=== PATIENT | male | born 1965 | race Caucasian/White ===

== ENCOUNTER 2020-01-29 15:07 | Inpatient (IN) | payer MEDICARE, MEDICAID, SELFPAY ==
[2020-01-29] VITALS (10 sets, daily range): BP systolic 88–118; BP diastolic 53–69; PULSE 79–113; RESP 18–30; TEMP 36.7–38.3; O2SAT 90–98
--- NOTE | ~2020-01-29 | XR_ITS ---
EXAMINATION: XR chest 1V portable DATE: 02/03/2020 04:28 INDICATION: Pneumonia with respiratory failure , now desaturating. TECHNIQUE: frontal view of the chest was obtained. COMPARISON: Chest radiograph dated FINDINGS: Opacities in the bilateral mid and lower lung zones more prominent on the right where there has been interval improvement in aeration at the right lung base and with slight worsening on the left which r emains less severe than the right. Small right which is decreased since the prior study. Likely tiny left pleural effusions. No pneumothorax. The cardiomediastinal silhouette is normal. IMPRESSION: 1. Decreased small right and likely new tiny left pleural effusions. 2. Airspace disease in the bilateral lower lung zones, greater but with interval improvement on the r ight and to lesser degree but with slight progression on the left. Differential includes pneumonia, a telectasis, mild pulmonary edema or some combination thereof. Reviewed, dictated and finalized at location A. IMPRESSION: 1. Decreased small right and likely new tiny left pleural effusions. 2. Airspace disease in the bilateral lower lung zones, greater but with interva l improvement on the right and to lesser degree but with slight progression on the left. Differential includes pneumonia, atelectasis, mild pulmonary edema or some combination thereof.
--- NOTE | ~2020-01-29 | XR_ITS ---
MODIFIED ESOPHAGRAM HISTORY: Dysphagia. TECHNIQUE: Modified barium esophagram was performed by speech pathologist under radiologist fluorosco pic guidance. This was recorded on tape. The exam was reviewed on 02/02/2020 10:57 CDT. The DAP for this procedure was 0.7 Gycm2. Fluoroscopy time is 0.8. FINDINGS: Lateral projection of the cervical spine demonstrates normal alignment. Prominent ventral osteophytes.. There is normal swallowing function without evidence for penetration or aspiration.. IMPRESSION: 1: Normal swallowing function. 2: Please refer to speech pathologist report for additional detail. Reviewed, dictated and finalized at location A.
--- NOTE | ~2020-01-29 | XR_ITS ---
EXAMINATION: XR chest 1V portable INDICATION: Cough and fever TECHNIQUE: Portable AP chest at 1557 hours COMPARISON: 10/03/2018 FINDINGS: There are airspace opacities of the lung bases. No pleural effusion or pneumothorax is iden tified. The cardiomediastinal silhouette is normal. IMPRESSION: 1. Bibasilar airspace opacity, consistent with atelectasis versus pneumonia. Reviewed, dictated and finalized at location A.
--- NOTE | ~2020-01-29 | XR_ITS ---
EXAMINATION: XR chest 1V portable DATE: 01/31/2020 05:45 INDICATION: Pneumonia. Respiratory failure. TECHNIQUE: frontal view of the chest was obtained. COMPARISON: Chest radiograph dated 01/29/2020 FINDINGS: No significant change in airspace opacities in the left lower lung zone. New small to moderate right pleural effusion with increasing opacities in the right mid to lower lung zones. No pneumothorax. The cardiomediastinal silhouette is normal. IMPRESSION: 1. Increasing small to moderate right pleural effusion. 2. Patchy bilateral airspace disease which could represent pneumonia, pulmonary edema, atelectasis or some combination thereof. Reviewed, dictated and finalized at location A.
--- NOTE | 2020-01-29 15:07 | ED.URI ---
HPI - URI/Sore Throat General Chief Complaint: Fever Stated Complaint: cough/fever Time Seen by Provider: 01/29/20 15:07 Source: family (caregiver) Mode of arrival: EMS Limitations: other (mental disability) History of Present Illness HPI Narrative: A 54 y/o male presents to the ED, via EMS from [facility], with c/o fever. Per patient's caregiver, the patient started to have a cough. The caregiver notes that today the patient had a fever and was weak, shaky, and fatigued. He has a PMHx of Down Syndrome, Alzheimer disease, pneumonia, and deafness. A complete HPI is limited due to the patient's mental disability. MD elicited complaint: fever Pertinent past history: pneumonia Onset (ago): hour(s) (today) Consistency: constant Associated symptoms: cough and other (weakness, fatigue, shakiness) Related Data Home Medications Medication Instructions Recorded Confirmed cholecalciferol (vitamin D3) unit 01/29/20 docusate sodium 100 mg PO DAILY 01/29/20 donepezil 10 mg PO HS 01/29/20 finasteride 5 mg PO DAILY 01/29/20 levetiracetam 500 mg PO BID 01/29/20 quetiapine 100 mg PO BID 01/29/20 sennosides [senna] 8.6 mg PO BID PRN 01/29/20 tamsulosin 0.4 mg PO DAILY 01/29/20 terbinafine HCl [Antifungal 1 applic TOPICAL BID 01/29/20 (terbinafine)] Allergies Allergy/AdvReac Type Severity Reaction Status Date / Time SODA Allergy Intermediate Unknown Uncoded 12/29/19 13:36 Review of Systems Review of Systems: Narrative: A complete ROS is limited due to the patient's mental disability. All systems reviewed & are unremarkable except as noted in HPI and below Constitutional: Constitutional: Reports fatigue, Reports fever(s), Reports weakness and Reports other (shakiness) Respiratory: Respiratory: Reports cough PMFSH Past Medical History Medical History (Updated 01/29/20 @ 18:03 by Areli Anaya MD) Alzheimer disease Behavior disturbance Deaf Dementia Down syndrome GERD (gastroesophageal reflux disease) Pneumonia Seizure UTI (urinary tract infection) Surgical History Surgical History (Updated 01/29/20 @ 15:20 by Elena Alston) No pertinent past surgical history Social History Social History (Updated 01/29/20 @ 18:04 by Areli Anaya MD) Living arrangements: fdc Exam Const: General: cooperative, no acute distress and alert Nutritional Appearance: well nourished Orientation/consciousness: patient oriented x3 Limitations: no limitations HENMT: Mouth: Yes lip normal and Yes moist mucous membranes Resp: Effort & Inspection: normal respiratory effort Auscultation: rhonchi right lower and wheezes scattered wheezes (bilateral) Cardio: Rate: tachycardic Rhythm: regular rhythm GI: GI Palp: Yes Soft to palpation and No Tenderness to palpation present (GI) Auscultation: normal bowel sounds Skin: General skin exam: normal color Neuro: General: patient oriented x3 (alert) Cognition (Neuro): normal cognition Speech: normal speech Extrem: General: normal to inspection, full ROM and no clubbing, cyanosis or edema Psych: Mental Status: mental status grossly normal Affect: normal affect Attitude: cooperative Course Course Emergency Course: Patient presents with fever, tachycardia, and elevated white blood cell count as well as findings of pneumonia. Patient chest x-ray concerning for possibility that he could have novel coronavirus infection versus other type of pneumonia. Testing will be sent to [place] [facility]. Patient treated with broad-spectrum IV antibiotics. Patient given acetaminophen and 2 L of IV fluid bolus. Patient admitted to hospitalist service for further care. Consultations Consultation #1: Discussed case with PARVEEN Munoz to the hospitalist. She accepts admission. Date: 01/29/20 Time: 16:19 Vital Signs Vital signs: Vital Signs Temperature 100.9 F H 01/29/20 15:08 Pulse Rate 113 H 01/29/20 15:08 Respiratory Rate 1
[2020-01-29] MEDS: LACTATED RINGERS 1,000 ML 999 ML IV CONT ×2 (15:45→17:08)
[2020-01-29 15:48] LABS: Basophils Percent Auto 0.2 % (0.2-1.2); Hematocrit 38.5 % (42.0-52.0); Hemoglobin 12.8 g/dL (14.0-18.0); Immature Granulocyte Absolute 0.14 K/mm3 (0.00-0.031); Immature Granulocyte Percent A 0.8 % (0-0.5); Lymphocytes Absolute Auto 0.42 K/mm3 (0.9-3.2); Lymphocytes Percent Auto 2.3 % (18.3-44.2); Mean Corpuscular HGB Conc 33.2 g/dl (32-36); Mean Corpuscular Hemoglobin 33.8 pg (26-34); Mean Corpuscular Volume 101.6 fl (80-100); Mean Platelet Volume 10.3 fl (7.4-10.4); Monocytes Absolute Auto 0.8 K/mm3 (0.1-0.6); Monocytes Percent Auto 4.1 % (2.6-8.5); Neutrophils Absolute Auto 17.2 K/mm3 (1.3-6.7); Neutrophils Percent Auto 92.6 % (45.5-73.1); Platelet Count Result 198 k/mm3 (150-375); Red Blood Count 3.79 M/mm3 (4.6-6.20); Red Cell Distribution Width 13.5 % (11.5-14.5); White Blood Count 18.5 K/mm3 (4.5-10.0)
[2020-01-29 15:52] LABS: Add Urine Microscopic? YES; Appearance Urine Clear (Clear); Bilirubin Urine Negative (Negative); Blood Urine 1+ (Negative); Color Urine Yellow (Yellow); Glucose Urine UA Negative (Negative); Ketones Urine Negative (Negative); Leukocyte Esterase Ur Negative LEU/UL (Negative); Mucus Urine Rare /lpf; Nitrate Urine Negative (Negative); Protein Urine 1+ mg/dL (Negative); RBC Urine 0-2 /hpf (0-2); Urobilinogen Urine Negative mg/dL (<2.0); WBC Urine 0-3 /hpf
[2020-01-29 15:57] LABS: INR 1.1; Prothrombin Time 14.3 Seconds (11.1-14.7)
[2020-01-29 15:58] LABS: Partial Thromboplastin Time 33.3 SECONDS (22.3-36.8)
[2020-01-29 15:59] LABS: Lactic Acid Reflex 2.4 mmol/L (0.7-2.1)
[2020-01-29 16:03] LABS: Alanine Aminotransferase 24 U/L (4-50); Albumin Level 3.7 g/dL (3.5-5.1); Alkaline Phosphatase 106 U/L (38-126); Aspartate Amino Transferase 57 U/L (17-59); Bilirubin,Total 0.5 mg/dL (0.2-1.3); Blood Urea Nitrogen 20 mg/dL (9-20); Calcium 8.9 mg/dL (8.4-10.2); Carbon Dioxide 28 mmol/L (22-30); Chloride 105 mmol/L (98-107); Estimated Glomerular Filt Rate 45; Glucose 164 mg/dL (75-110); Potassium 3.8 mmol/L (3.4-5.0); Sodium 139 mmol/L (137-145)
--- NOTE | 2020-01-29 16:34 | PCDIET ---
Patient guardian is Izabela. [phone] and [phone] are the numbers to reach her. Pamella is the long term boss . She advised me that anyone can call her at any time. [phone]
[2020-01-29 17:02] LABS: CRP 25.7 mg/dL (<1.0)
--- NOTE | 2020-01-29 18:36 | ADMGEN ---
This patient, Tani Anna, was admitted to 3 [facility] Surg Room 331-01. Patient/family oriented to hospital policies and general routines including ID bracelet, bed and alarms, visiting hours, pain management, procedures, bathroom and other care routines, personal items, smoking policy, room service/diet, and visiting hours. Valuables list has been completed. Information on how to activate the Rapid Response Team has been discussed. Patient/Family are encouraged to report perceived risks to care and to ask questions if they do not understand what they are told or what they should do.
[2020-01-29 18:44] LABS: Reflex Lactic Acid Yes or No Add Lactic
[2020-01-29] MEDS: LACTATED RINGERS 1,000 ML 150 ML IV CONT (18:50)
--- NOTE | 2020-01-29 19:30 | PM.IMHP ---
H&P: HPI History of Present Illness Chief complaint: Fever and cough. Narrative: Tani Anna is a 55-year-old male with Down syndrome, intellectual disability with occasional behavioral disturbances, dementia, history of seizures, benign prostatic hyperplasia, and chronic kidney disease stage 3 who presented to the emergency department earlier today via EMS from his penitentiary, [facility], for evaluation of cough and fever. I have not been able to get a hold of a guardian or emergency contact, and at the time of my evaluation the patient is alert but he does not answer questions or follow commands. According to documentation, he has had a cough for the last couple of days, has been weak, shaky, sleeping more than usual, and has been coughing. Specimens were collected to send for testing to rule out novel yee virus infection per [place] [facility]. He has been started on broad-spectrum antibiotics and is being admitted in this setting. Review of Systems Review of Systems: Narrative: Unable to be obtained he as he is nonverbal. FOR[facility]LY [facility] Past Medical History Medical History (Updated 01/29/20 @ 22:51 by Genie Saunders PA-C) Alzheimer disease Behavior disturbance Chronic anemia Chronic kidney disease, stage 3 Deaf : Baseline creatinine between 1.5 and 1.60. Dementia Down syndrome GERD (gastroesophageal reflux disease) Seizure Surgical History Surgical History (Updated 01/29/20 @ 15:20 by Elena Alston) No pertinent past surgical history Social History Social History (Updated 01/29/20 @ 22:43 by Genie Saunders PA-C) Social History: The patient lives in a penitentiary, [facility]. He is unable to provide me with any family history. His legal guardian is Izabela Blackburn. He is listed as a full code. Living arrangements: penitentiary Meds Home Medications and Allergies Home Medications Medication Instructions Recorded Confirmed Type cholecalciferol (vitamin D3) 1,000 unit PO DAILY 01/29/20 01/29/20 History [Vitamin D3] docusate sodium 100 mg PO DAILY 01/29/20 01/29/20 History donepezil 10 mg PO DAILY 01/29/20 01/29/20 History finasteride 5 mg PO DAILY 01/29/20 01/29/20 History levetiracetam 500 mg PO BID 01/29/20 01/29/20 History polyethylene glycol 3350 [Miralax] 17 g PO DAILY 01/29/20 01/29/20 History quetiapine 100 mg PO BID 01/29/20 01/29/20 History quetiapine [Seroquel] 50 mg PO BID 01/29/20 01/29/20 History sennosides [senna] 8.6 mg PO BID PRN 01/29/20 01/29/20 History tamsulosin 0.4 mg PO DAILY 01/29/20 01/29/20 History Allergies Allergy/AdvReac Type Severity Reaction Status Date / Time SODA Allergy Intermediate Unknown Uncoded 12/29/19 13:36 Vital Signs Vital Signs - 24 hr 01/29/20 15:08 01/29/20 15:13 01/29/20 15:46 Temperature 100.9 F H Pulse Rate 113 H 95 Respiratory Rate 18 22 H Blood Pressure 118/68 88/62 L Pulse Oximetry 90 91 97 01/29/20 15:56 01/29/20 16:07 01/29/20 16:57 Temperature Pulse Rate 89 Respiratory Rate 30 H Blood Pressure 104/56 L 90/69 L Pulse Oximetry 98 98 01/29/20 16:58 01/29/20 17:56 01/29/20 19:04 Temperature 100.0 F H 98.0 F Pulse Rate 79 88 Respiratory Rate 20 18 Blood Pressure 100/57 L 100/58 L Pulse Oximetry 98 98 01/29/20 21:48 Temperature 98.4 F Pulse Rate 82 Respiratory Rate 22 H Blood Pressure 106/53 L Pulse Oximetry 97 Exam Narrative: Exam Narrative: General: Acutely ill-appearing male resting on his right side in bed. HEENT: Pupils are reactive. Extraocular motions appear to be intact. Sclerae anicteric. Oral mucosa dry. Oropharynx not visualized. Neck: Supple. Respiratory: Coarse breath sounds throughout with expiratory rhonchi. Cardiovascular: Regular rate and rhythm with S1-S2. Gastrointestinal: Abdomen is soft, nontender, and nondistended with positive bowel sounds. Skin: Warm, dry, and pale. Extremities: No cyanosis, clubbing, or edema.
[2020-01-29] MEDS: QUEtiapine FUMARATE 100 MG TABLET PO (23:52)
[2020-01-30] VITALS (7 sets, daily range): BP systolic 80–105; BP diastolic 39–76; PULSE 24–98; RESP 22–40; TEMP 36.8–38.6; O2SAT 91–100
[2020-01-30] MEDS: LACTATED RINGERS 1,000 ML 150 ML IV CONT ×2 (02:04→20:09)
[2020-01-30 06:28] LABS: Basophils Percent Auto 0.1 % (0.2-1.2); Hematocrit 32.7 % (42.0-52.0); Immature Granulocyte Absolute 0.12 K/mm3 (0.00-0.031); Immature Granulocyte Percent A 0.7 % (0-0.5); Lymphocytes Absolute Auto 0.68 K/mm3 (0.9-3.2); Lymphocytes Percent Auto 3.9 % (18.3-44.2); Mean Corpuscular HGB Conc 33.6 g/dl (32-36); Mean Corpuscular Hemoglobin 34.1 pg (26-34); Mean Corpuscular Volume 101.2 fl (80-100); Mean Platelet Volume 9.9 fl (7.4-10.4); Monocytes Absolute Auto 0.8 K/mm3 (0.1-0.6); Monocytes Percent Auto 4.8 % (2.6-8.5); Neutrophils Absolute Auto 15.6 K/mm3 (1.3-6.7); Neutrophils Percent Auto 90.5 % (45.5-73.1); Platelet Count Result 164 k/mm3 (150-375); Red Blood Count 3.23 M/mm3 (4.6-6.20); Red Cell Distribution Width 13.5 % (11.5-14.5); White Blood Count 17.3 K/mm3 (4.5-10.0)
[2020-01-30 06:46] LABS: Alanine Aminotransferase 28 U/L (4-50); Albumin Level 2.6 g/dL (3.5-5.1); Alkaline Phosphatase 75 U/L (38-126); Aspartate Amino Transferase 63 U/L (17-59); Bilirubin,Total 0.4 mg/dL (0.2-1.3); Blood Urea Nitrogen 13 mg/dL (9-20); Calcium 7.8 mg/dL (8.4-10.2); Carbon Dioxide 29 mmol/L (22-30); Chloride 107 mmol/L (98-107); Estimated Glomerular Filt Rate 53; Glucose 108 mg/dL (75-110); Potassium 3.6 mmol/L (3.4-5.0); Sodium 138 mmol/L (137-145)
[2020-01-30] MEDS: ALBUTEROL SULFATE (*SP) AEROSOL 1 PUFF 2 PUFF INHALATION ×2 (08:20→20:13)
[2020-01-30] MEDS: FINASTERIDE 5 MG TABLET PO (08:46)
[2020-01-30] MEDS: QUEtiapine FUMARATE 100 MG TABLET PO ×2 (08:46→20:31)
[2020-01-30] MEDS: CHOLECALCIFEROL 1,000 UNIT TABLET 1000 UNITS PO (08:46)
[2020-01-30] MEDS: DOCUSATE SODIUM 100 MG CAPSULE PO (08:46)
[2020-01-30] MEDS: levETIRAcetam 500 MG TABLET PO (08:46)
[2020-01-30] MEDS: TAMSULOSIN HCL 0.4 MG CAPSULE PO (08:46)
[2020-01-30] MEDS: LACTATED RINGERS 1,000 ML 100 ML IV CONT (08:50)
[2020-01-30] MEDS: SODIUM CHLORIDE 0.9% IV 500 ML IV CONT ×2 (12:00→12:50)
--- NOTE | 2020-01-30 13:34 | PM.IMPN ---
Progress Note: A&P Assessment and Plan (1) Sepsis: Qualifiers: Sepsis acute organ dysfunction status: without acute organ dysfunction Sepsis type: sepsis due to unspecified organism Qualified Code(s): A41.9 - Sepsis, unspecified organism Code(s): A41.9 - Sepsis, unspecified organism Status: Acute Assessment and Plan: Criteria met on admission. Blood pressure reviewed on 01/30/2020 with lower readings. Fluid boluses being given. Will increase IV fluid rate. Blood cultures pending. Continue IV ceftriaxone and azithromycin for pneumonia as noted below. Due to drowsiness, will hold any oral medications possible. Will hold his tamsulosin with lower blood pressure. Will continue to monitor closely. Patient remains in isolation with COVID-19 tested initiated by [facility]. (2) Pneumonia: Qualifiers: Laterality: bilateral Lung location: lower lobe of lung Pneumonia type: due to unspecified organism Qualified Code(s): J18.9 - Pneumonia, unspecified organism Code(s): J18.9 - Pneumonia, unspecified organism Status: Acute Assessment and Plan: Chest x-ray with bilateral airspace disease present. Currently on 3 L of oxygen. Continue IV ceftriaxone and azithromycin. Influenza screen negative. Urine antigens ordered. Testing for COVID-19 initiated as noted above. Continue isolation. Continue albuterol and Atrovent MDI. (3) Acute respiratory failure with hypoxia: Code(s): J96.01 - Acute respiratory failure with hypoxia Status: Acute Assessment and Plan: Result of pneumonia as noted above. Continue respiratory treatments and IV antibiotics as noted. Continue oxygen as needed. (4) Chronic kidney disease, stage 3: Code(s): N18.3 - Chronic kidney disease, stage 3 (moderate) Status: Acute Assessment and Plan: Creatinine is stable at 1.40 today. Will continue to monitor. (5) Chronic anemia: Code(s): D64.9 - Anemia, unspecified Status: Acute Assessment and Plan: Hemoglobin stable in his normal range at 11.0 today. Will monitor. (6) Seizure: Code(s): R56.9 - Unspecified convulsions Status: Acute Assessment and Plan: Patient normally on oral Keppra. With patient being drowsy will convert to IV Keppra for now. Will monitor. No current seizure activity. (7) Dementia: Qualifiers: Dementia type: unspecified type Dementia behavioral disturbance: with behavioral disturbance Qualified Code(s): F03.91 - Unspecified dementia with behavioral disturbance Code(s): F03.90 - Unspecified dementia without behavioral disturbance Status: Acute Assessment and Plan: Will try to continue giving his Seroquel as well as able based on his history. If unable to swallow due to current condition, will need to hold and monitor. (8) Down syndrome: Code(s): Q90.9 - Down syndrome, unspecified Status: Acute Assessment and Plan: With intellectual disability also complicating situation. Does live in a long-term. (9) DVT prophylaxis: Code(s): Z29.9 - Encounter for prophylactic measures, unspecified Status: Acute Assessment and Plan: SCDs. Time Spent With Patient Time with patient: 15 - 25 minutes Subjective Date/time seen: 01/30/20 13:34 Interval history: Date of Service: 01/30/2020. Admitted with sepsis and pneumonia. Patient is from a long-term. Known Down's syndrome, intellectual disability with occasional behavioral disturbances, dementia, seizure disorder and CKD stage 3. Patient with fever still today. Patient is drowsy. He will open his eyes but otherwise unable to obtain any information from patient. Review of Systems Review of Systems: ROS unobtainable: unobtainable due to mental condition and unobtainable due to mental status Constitutional: Constitutional: Reports fever(s) Genitourinary: Comments: Catheter in place Ex
--- NOTE | 2020-01-30 18:54 | PC.NURSE ---
Called pt's guardian, Izabela, to inform her that pt was transferred to IMU overflow in ICU 4 at 1850.
[2020-01-30] MEDS: levETIRAcetam 500MG/NACL 100ML 500 MG/100 ML BAG 400 MG IVPB (20:11)
[2020-01-31] VITALS (13 sets, daily range): BP systolic 90–129; BP diastolic 48–70; PULSE 67–92; RESP 18–99; TEMP 37.3–38.1; O2SAT 22–100; BMI 25.7
[2020-01-31] MEDS: LACTATED RINGERS 1,000 ML 150 ML IV CONT ×2 (04:14→10:38)
[2020-01-31 04:46] LABS: Hematocrit 37.4 % (42.0-52.0); Mean Corpuscular HGB Conc 32.1 g/dl (32-36); Mean Corpuscular Volume 105.9 fl (80-100); Mean Platelet Volume 10.8 fl (7.4-10.4); Platelet Count Result 145 k/mm3 (150-375); Red Blood Count 3.53 M/mm3 (4.6-6.20); Red Cell Distribution Width 13.9 % (11.5-14.5); White Blood Count 14.3 K/mm3 (4.5-10.0)
[2020-01-31 07:52] LABS: Blood Urea Nitrogen 12 mg/dL (9-20); Carbon Dioxide 29 mmol/L (22-30); Chloride 105 mmol/L (98-107); Estimated CRCL calculation 56 ml/min; Estimated Glomerular Filt Rate > 60; Glucose 92 mg/dL (75-110); Potassium 3.7 mmol/L (3.4-5.0); Sodium 138 mmol/L (137-145)
[2020-01-31] MEDS: levETIRAcetam 500MG/NACL 100ML 500 MG/100 ML BAG 200 MG IVPB (08:28)
[2020-01-31] MEDS: QUEtiapine FUMARATE 100 MG TABLET PO ×2 (08:29→20:37)
[2020-01-31] MEDS: ALBUTEROL SULFATE (*SP) AEROSOL 1 PUFF 2 PUFF INHALATION ×4 (09:00→20:51)
--- NOTE | 2020-01-31 12:40 | PM.IMPN ---
Progress Note: A&P Assessment and Plan (1) Sepsis: Qualifiers: Sepsis acute organ dysfunction status: without acute organ dysfunction Sepsis type: sepsis due to unspecified organism Qualified Code(s): A41.9 - Sepsis, unspecified organism Code(s): A41.9 - Sepsis, unspecified organism Status: Acute Assessment and Plan: Criteria met on admission. Blood pressure reviewed on 01/31/2020 and stable in low-normal range at this time. Blood cultures with no growth to date. Continue IV ceftriaxone and azithromycin for pneumonia as noted below. Continue isolation with COVID-19 testing initiated by [facility] and results pending. Will decrease IV fluid rate and monitor blood pressure. Telemetry reviewed on 01/31/2020 with sinus rhythm. (2) Pneumonia: Qualifiers: Laterality: bilateral Lung location: lower lobe of lung Pneumonia type: due to unspecified organism Qualified Code(s): J18.9 - Pneumonia, unspecified organism Code(s): J18.9 - Pneumonia, unspecified organism Status: Acute Assessment and Plan: Chest x-ray today personally reviewed with small to moderate right pleural effusion, patchy bilateral airspace disease. Continue oxygen currently at 3 L. Will also continue IV ceftriaxone and azithromycin. Influenza screen is negative. Urine antigens for Legionella and pneumococcus are still pending. Testing for COVID-19 also still pending. Continue isolation. Continue albuterol Atrovent MDI. (3) Acute respiratory failure with hypoxia: Code(s): J96.01 - Acute respiratory failure with hypoxia Status: Acute Assessment and Plan: Result of pneumonia as noted above. Remains on 3 L oxygen. Respiratory rate noted to be increased but oxygen requirements not increasing. Will continue to monitor closely. Continue IV antibiotics and inhalers as noted above. (4) Chronic kidney disease, stage 3: Code(s): N18.3 - Chronic kidney disease, stage 3 (moderate) Status: Acute Assessment and Plan: Creatinine than baseline at 1.10 today. Will continue to monitor with decrease in IV fluids. (5) Chronic anemia: Code(s): D64.9 - Anemia, unspecified Status: Acute Assessment and Plan: Hemoglobin remains stable at 12.0 today. Will monitor. (6) Seizure: Code(s): R56.9 - Unspecified convulsions Status: Acute Assessment and Plan: No seizure activity. Converted to IV Keppra yesterday due to concern for swallowing with drowsiness. Will leave Keppra IV at this time. Eventual transition back to oral Keppra when able. Will continue to monitor. (7) Dementia: Qualifiers: Dementia behavioral disturbance: with behavioral disturbance Dementia type: unspecified type Qualified Code(s): F03.91 - Unspecified dementia with behavioral disturbance Code(s): F03.90 - Unspecified dementia without behavioral disturbance Status: Acute Assessment and Plan: Has been stable. Has been able to take his Seroquel. Will monitor. (8) Down syndrome: Code(s): Q90.9 - Down syndrome, unspecified Status: Acute Assessment and Plan: With intellectual disability also complicating situation. Does live in a halfway. (9) DVT prophylaxis: Code(s): Z29.9 - Encounter for prophylactic measures, unspecified Status: Acute Assessment and Plan: SCDs. Time Spent With Patient Time with patient: 15 - 25 minutes Subjective Date/time seen: 01/31/20 12:40 Interval history: Date of Service: 01/31/2020. Admitted with sepsis and pneumonia. Patient is from a halfway. Known Down's syndrome, intellectual disability with occasional behavioral disturbances, dementia, seizure disorder and CKD stage 3. Moved to IMU for closer monitoring yesterday increased respiratory rate. No issues noted this morning per nursing. Patient is sleeping. I am eventually able to get him to open his eyes. Unable t
[2020-01-31] MEDS: LACTATED RINGERS 1,000 ML 100 ML IV CONT (20:37)
[2020-01-31] MEDS: levETIRAcetam 500MG/NACL 100ML 500 MG/100 ML BAG 400 MG IVPB (20:37)
[2020-02-01] VITALS (17 sets, daily range): BP systolic 86–127; BP diastolic 49–76; PULSE 74–101; RESP 18–34; TEMP 37.1–37.4; O2SAT 91–100
[2020-02-01 05:07] LABS: Hemoglobin 10.8 g/dL (14.0-18.0); Mean Corpuscular HGB Conc 32.7 g/dl (32-36); Mean Corpuscular Hemoglobin 33.6 pg (26-34); Mean Corpuscular Volume 102.8 fl (80-100); Mean Platelet Volume 9.9 fl (7.4-10.4); Platelet Count Result 226 k/mm3 (150-375); Red Blood Count 3.21 M/mm3 (4.6-6.20); Red Cell Distribution Width 13.5 % (11.5-14.5); White Blood Count 11.3 K/mm3 (4.5-10.0)
[2020-02-01 05:13] LABS: Blood Urea Nitrogen 10 mg/dL (9-20); Calcium 7.7 mg/dL (8.4-10.2); Carbon Dioxide 31 mmol/L (22-30); Chloride 103 mmol/L (98-107); Estimated CRCL calculation 56 ml/min; Estimated Glomerular Filt Rate > 60; Glucose 103 mg/dL (75-110); Potassium 3.6 mmol/L (3.4-5.0); Sodium 135 mmol/L (137-145)
[2020-02-01] MEDS: LACTATED RINGERS 1,000 ML 100 ML IV CONT ×2 (06:38→16:44)
[2020-02-01] MEDS: QUEtiapine FUMARATE 100 MG TABLET PO (08:03)
[2020-02-01] MEDS: levETIRAcetam 500MG/NACL 100ML 500 MG/100 ML BAG 200 MG IVPB (08:03)
[2020-02-01] MEDS: ALBUTEROL SULFATE (*SP) AEROSOL 1 PUFF 2 PUFF INHALATION ×4 (08:21→20:09)
--- NOTE | 2020-02-01 16:03 | PCPTNOTE ---
Spoke w/ Dr Richards regarding pt being at baseline and no skilled therapy needs. She agreed w/ DC'ing PT/OT
--- NOTE | 2020-02-01 16:45 | PM.IMPN ---
Progress Note: A&P Assessment and Plan (1) Sepsis: Qualifiers: Sepsis acute organ dysfunction status: without acute organ dysfunction Sepsis type: sepsis due to unspecified organism Qualified Code(s): A41.9 - Sepsis, unspecified organism Code(s): A41.9 - Sepsis, unspecified organism Status: Acute (2) Pneumonia: Qualifiers: Laterality: bilateral Lung location: lower lobe of lung Pneumonia type: due to unspecified organism Qualified Code(s): J18.9 - Pneumonia, unspecified organism Code(s): J18.9 - Pneumonia, unspecified organism Status: Acute (3) Acute respiratory failure with hypoxia: Code(s): J96.01 - Acute respiratory failure with hypoxia Status: Acute (4) Chronic kidney disease, stage 3: Code(s): N18.3 - Chronic kidney disease, stage 3 (moderate) Status: Acute (5) Chronic anemia: Code(s): D64.9 - Anemia, unspecified Status: Acute (6) Seizure: Code(s): R56.9 - Unspecified convulsions Status: Acute Assessment and Plan: . (7) Dementia: Qualifiers: Dementia behavioral disturbance: with behavioral disturbance Dementia type: unspecified type Qualified Code(s): F03.91 - Unspecified dementia with behavioral disturbance Code(s): F03.90 - Unspecified dementia without behavioral disturbance Status: Acute Assessment and Plan: (8) Down syndrome: Code(s): Q90.9 - Down syndrome, unspecified Status: Acute (9) DVT prophylaxis: Code(s): Z29.9 - Encounter for prophylactic measures, unspecified Status: Acute Assessment and Plan: SCDs. Subjective Date/time seen: 02/01/20 16:45 Interval history: Date of Service: 01/31/2020. Admitted with sepsis and pneumonia. Patient is from a detention. Known Down's syndrome, intellectual disability with occasional behavioral disturbances, dementia, seizure disorder and CKD stage 3. COVID testing is negative transfer to medical floor Review of Systems Review of Systems: All systems reviewed & are unremarkable except as noted in HPI and below Exam Narrative: Exam Narrative: Sleeping but eventually opens his eyes. Does not answer questions. Const: General: no acute distress HENMT: Other: Unable to assess. Neck: Neck: supple Lymphatic: lymphadenopathy not noted Resp: Auscultation: diminished lung sounds Other: Coarse breath sounds more so on the right. Cardio: Rate: regular rate Rhythm: regular rhythm GI: Inspection: non-distended Auscultation: normal bowel sounds Urinary Catheter: Urinary Catheter: patent and draining and urine pink Skin: General skin exam: normal color Neuro: Other: Does not answer questions but will open eyes Extrem: General: no edema Psych: Other: pleasant, not agitated Objective Data Vital Signs Vital Signs: Vital Signs - 24 hr 01/31/20 18:00 01/31/20 20:00 01/31/20 20:52 Temperature 37.6 C Pulse Rate 84 88 Respiratory Rate 99 H 28 H Blood Pressure 106/70 117/66 Pulse Oximetry 22 L 100 91 01/31/20 22:00 02/01/20 00:00 02/01/20 02:00 Temperature 37.2 C Pulse Rate 84 82 101 H Respiratory Rate 27 H 30 H 32 H Blood Pressure 96/62 L 110/63 114/59 L Pulse Oximetry 93 98 91 02/01/20 04:00 02/01/20 06:00 02/01/20 08:00 Temperature 37.1 C 37.1 C Pulse Rate 77 78 74 Respiratory Rate 22 H 30 H 18 Blood Pressure 86/51 L 105/69 96/56 L Pulse Oximetry 100 95 97 02/01/20 08:26 02/01/20 10:00 02/01/20 12:00 Temperature 37.3 C Pulse Rate 80 78 80 Respiratory Rate 18 24 H 26 H Blood Pressure 127/49 L 112/63 Pulse Oximetry 96 97 97 02/01/20 14:00 02/01/20 16:00 02/01/20 16:17 Temperature 37.3 C Pulse Rate 94 82 85 Respiratory Rate 25 H 34 H 20 Blood Pressure 114/72 106/63 Pulse Oximetry 96 95 96 Intake/Output Intake/Output: Intake & Output 01/29/20 01/30/20 01/31/20 02/01/20 23:59 23:59 23:59 23:59 Intake Total 2400 4
[2020-02-01] MEDS: levETIRAcetam 500MG/NACL 100ML 500 MG/100 ML BAG 400 MG IVPB (21:30)
[2020-02-02] VITALS (14 sets, daily range): BP systolic 93–132; BP diastolic 52–74; PULSE 64–92; RESP 14–26; TEMP 36.7–37.6; O2SAT 91–95
[2020-02-02] MEDS: LACTATED RINGERS 1,000 ML 100 ML IV CONT (02:42)
[2020-02-02] MEDS: levETIRAcetam 500MG/NACL 100ML 500 MG/100 ML BAG 400 MG IVPB (08:30)
[2020-02-02 08:32] LABS: Hematocrit 32.9 % (42.0-52.0); Mean Corpuscular HGB Conc 33.4 g/dl (32-36); Mean Corpuscular Hemoglobin 33.5 pg (26-34); Mean Corpuscular Volume 100.3 fl (80-100); Mean Platelet Volume 9.6 fl (7.4-10.4); Platelet Count Result 258 k/mm3 (150-375); Red Blood Count 3.28 M/mm3 (4.6-6.20); Red Cell Distribution Width 13.3 % (11.5-14.5); White Blood Count 5.8 K/mm3 (4.5-10.0)
[2020-02-02 08:46] LABS: Blood Urea Nitrogen 10 mg/dL (9-20); Calcium 7.6 mg/dL (8.4-10.2); Carbon Dioxide 31 mmol/L (22-30); Chloride 104 mmol/L (98-107); Estimated CRCL calculation 61 ml/min; Estimated Glomerular Filt Rate > 60; Glucose 102 mg/dL (75-110); Magnesium 1.9 mg/dL (1.6-2.3); Potassium 3.4 mmol/L (3.4-5.0); Sodium 137 mmol/L (137-145)
[2020-02-02] MEDS: ALBUTEROL SULFATE (*SP) AEROSOL 1 PUFF 2 PUFF INHALATION ×4 (09:17→21:12)
--- NOTE | 2020-02-02 09:40 | PCSTNOTE ---
Please refer to the Bedside Swallow Evaluation in the EMR.
[2020-02-02] MEDS: QUEtiapine FUMARATE 100 MG TABLET PO ×2 (09:54→20:10)
--- NOTE | 2020-02-02 12:02 | PCSTNOTE ---
Please refer to the Modified Barium Swallow Evaluation in the EMR.
--- NOTE | 2020-02-02 13:08 | PM.IMPN ---
Progress Note: A&P Assessment and Plan (1) Sepsis: Qualifiers: Sepsis acute organ dysfunction status: without acute organ dysfunction Sepsis type: sepsis due to unspecified organism Qualified Code(s): A41.9 - Sepsis, unspecified organism Code(s): A41.9 - Sepsis, unspecified organism Status: Acute Assessment and Plan: Continue IV ceftriaxone and azithromycin for pneumonia. transfer to medical floor. (2) Pneumonia: Qualifiers: Laterality: bilateral Lung location: lower lobe of lung Pneumonia type: due to unspecified organism Qualified Code(s): J18.9 - Pneumonia, unspecified organism Code(s): J18.9 - Pneumonia, unspecified organism Status: Acute Assessment and Plan: Chest x-ray today shows small to moderate right pleural effusion, patchy bilateral airspace disease. Continue oxygen currently at 2 L. Will also continue IV ceftriaxone and azithromycin. Influenza screen is negative. Urine antigens for Legionella and pneumococcus are still pending. COVID negative as Per JOSE DAVID ID nurse. Continue albuterol Atrovent MDI. (3) Acute respiratory failure with hypoxia: Code(s): J96.01 - Acute respiratory failure with hypoxia Status: Acute Assessment and Plan: Result of pneumonia as noted above. Remains on 2- 3 L oxygen. Continue IV antibiotics and inhalers as noted above. (4) Chronic kidney disease, stage 3: Code(s): N18.3 - Chronic kidney disease, stage 3 (moderate) Status: Acute Assessment and Plan: Creatinine is at baseline. (5) Chronic anemia: Code(s): D64.9 - Anemia, unspecified Status: Acute Assessment and Plan: Hemoglobin remains stable at 11.0 (6) Seizure: Code(s): R56.9 - Unspecified convulsions Status: Acute Assessment and Plan: No seizure activity. Converted to IV Keppra yesterday due to concern for swallowing with drowsiness. change bavk to oral keppra today. Soft bites ok (7) Dementia: Qualifiers: Dementia type: unspecified type Dementia behavioral disturbance: with behavioral disturbance Qualified Code(s): F03.91 - Unspecified dementia with behavioral disturbance Code(s): F03.90 - Unspecified dementia without behavioral disturbance Status: Acute Assessment and Plan: Stable. Has been able to take his Seroquel. Will monitor. (8) Down syndrome: Code(s): Q90.9 - Down syndrome, unspecified Status: Acute Assessment and Plan: With intellectual disability also complicating situation. Does live in a senior care. (9) DVT prophylaxis: Code(s): Z29.9 - Encounter for prophylactic measures, unspecified Status: Acute Assessment and Plan: SCDs. Subjective Date/time seen: 02/02/20 13:08 Interval history: Admitted with sepsis and pneumonia. Patient is from a senior care. Known Down's syndrome, intellectual disability with occasional behavioral disturbances, dementia, seizure disorder and CKD stage 3. moved to ICu for COVID testing found to be negative. Transferred back to IMU. Can be transferred to the medical floor appears stable just very tired. Review of Systems Review of Systems: ROS unobtainable: Yes unobtainable due to mental status Respiratory: Respiratory: Reports cough and Reports wheezing Comments: lethargy Exam Narrative: Exam Narrative: Very tired Const: General: no acute distress Neck: Neck: supple Resp: Other: Coarse breath sounds more so on the right. Cardio: Rate: regular rate Rhythm: regular rhythm GI: Inspection: non-distended Auscultation: normal bowel sounds Urinary Catheter: Urinary Catheter: patent and draining and urine pink Skin: General skin exam: normal color Neuro: Other: Tired sleepy Extrem: General: no edema Psych: Other: Pleasant not agitated. Objective Data Vital Signs Vital Signs: Vital Signs - 24 hr 02/01/20 14:00 02/01/20 16:0
[2020-02-02 15:26] LABS: Pneumococcal Antigen Urine Not Detected (Not Detected)
[2020-02-02] MEDS: levETIRAcetam 500 MG TABLET PO (20:10)
[2020-02-02] MEDS: QUEtiapine FUMARATE 25 MG TABLET 50 MG PO (20:11)
[2020-02-03] VITALS (12 sets, daily range): BP systolic 102–132; BP diastolic 55–71; PULSE 63–98; RESP 16–40; TEMP 36.6–37.6; O2SAT 88–98
[2020-02-03] MEDS: ALBUTEROL SULFATE (*SP) AEROSOL 1 PUFF 2 PUFF INHALATION ×5 (04:31→21:01)
[2020-02-03 04:34] LABS: Alveolar/Arterial O2 Gradient 87.9 mmHg; Base Excess ABG 4.8 mEq/l (+/-2.0); Fractional Inspired Oxygen 28 %; HCO3 ABG 28.9 mEq/l (22.0-26.0); Oxygen Content ABG 14.8 %vol (16.0-22.0); Oxygen Saturation ABG 93.6 % (95.0-100.0); Oxyhemoglobin 91.4 % THb (90.0-100.0); PCO2 ABG 40.6 mmHg (35.0-45.0); PO2 ABG 63.8 mmHg (80.0-100.0); PO2 FiO2 Ratio Arterial Blood 2.28 %; Total Hemoglobin 11.5 g/dL (12.0-18.0)
[2020-02-03 04:35] LABS: Device NASAL CANNULA; Site Drawn RIGHT BRACHIAL
[2020-02-03 05:08] LABS: Hematocrit 31.4 % (42.0-52.0); Hemoglobin 10.4 g/dL (14.0-18.0); Mean Corpuscular HGB Conc 33.1 g/dl (32-36); Mean Corpuscular Hemoglobin 33.7 pg (26-34); Mean Corpuscular Volume 101.6 fl (80-100); Mean Platelet Volume 9.8 fl (7.4-10.4); Platelet Count Result 301 k/mm3 (150-375); Red Blood Count 3.09 M/mm3 (4.6-6.20); Red Cell Distribution Width 13.7 % (11.5-14.5); White Blood Count 4.5 K/mm3 (4.5-10.0)
[2020-02-03 05:22] LABS: Blood Urea Nitrogen 12 mg/dL (9-20); Calcium 7.4 mg/dL (8.4-10.2); Carbon Dioxide 30 mmol/L (22-30); Chloride 105 mmol/L (98-107); Estimated CRCL calculation 56 ml/min; Estimated Glomerular Filt Rate > 60; Glucose 106 mg/dL (75-110); Potassium 3.2 mmol/L (3.4-5.0); Sodium 139 mmol/L (137-145)
[2020-02-03] MEDS: QUEtiapine FUMARATE 100 MG TABLET PO ×2 (08:58→20:41)
[2020-02-03] MEDS: QUEtiapine FUMARATE 25 MG TABLET 50 MG PO ×2 (08:58→20:40)
[2020-02-03] MEDS: polyethylene glycoL 3350 17 GM POWD.PACK PO (08:58)
[2020-02-03] MEDS: DONEPEZIL HCL 10 MG TABLET PO (08:58)
[2020-02-03] MEDS: levETIRAcetam 500 MG TABLET PO ×2 (08:58→20:41)
--- NOTE | 2020-02-03 12:37 | PM.IMPN ---
Progress Note: A&P Assessment and Plan (1) Sepsis: Qualifiers: Sepsis acute organ dysfunction status: without acute organ dysfunction Sepsis type: sepsis due to unspecified organism Qualified Code(s): A41.9 - Sepsis, unspecified organism Code(s): A41.9 - Sepsis, unspecified organism Status: Acute Assessment and Plan: Continue IV ceftriaxone and azithromycin for pneumonia. Transfer to medical floor. (2) Pneumonia: Qualifiers: Laterality: bilateral Lung location: lower lobe of lung Pneumonia type: due to unspecified organism Qualified Code(s): J18.9 - Pneumonia, unspecified organism Code(s): J18.9 - Pneumonia, unspecified organism Status: Acute Assessment and Plan: Continue IV ceftriaxone and azithromycin for pneumonia. Transfer to medical floor. (3) Acute respiratory failure with hypoxia: Code(s): J96.01 - Acute respiratory failure with hypoxia Status: Acute Assessment and Plan: Continue IV ceftriaxone and azithromycin for pneumonia. Transfer to medical floor. Chest x-ray today shows small to moderate right pleural effusion, patchy bilateral airspace disease. Continue oxygen currently at 2 L. Will also continue IV ceftriaxone and azithromycin. Influenza screen is negative. Urine antigens for Legionella and pneumococcus are still pending. COVID negative as Per JOSE DAVID ID nurse. Continue albuterol Atrovent MDI. (4) Chronic kidney disease, stage 3: Code(s): N18.3 - Chronic kidney disease, stage 3 (moderate) Status: Acute (5) Chronic anemia: Code(s): D64.9 - Anemia, unspecified Status: Acute (6) Seizure: Code(s): R56.9 - Unspecified convulsions Status: Chronic Assessment and Plan: . (7) Dementia: Qualifiers: Dementia type: unspecified type Dementia behavioral disturbance: with behavioral disturbance Qualified Code(s): F03.91 - Unspecified dementia with behavioral disturbance Code(s): F03.90 - Unspecified dementia without behavioral disturbance Status: Chronic Assessment and Plan: (8) Down syndrome: Code(s): Q90.9 - Down syndrome, unspecified Status: Chronic (9) DVT prophylaxis: Code(s): Z29.9 - Encounter for prophylactic measures, unspecified Status: Acute Assessment and Plan: SCDs. Subjective Date/time seen: 02/03/20 12:37 Interval history: Date of Service: 01/31/2020. Admitted with sepsis and pneumonia. [facility]. Known Down's syndrome, intellectual disability with occasional behavioral disturbances, dementia, seizure disorder and CKD stage 3. COVID testing is negative transfer to medical floor. Pt is pleasant no acute compliants. Review of Systems Constitutional: Constitutional: Reports fatigue and Reports malaise Exam Narrative: Exam Narrative: Very tired Const: General: no acute distress Neck: Neck: supple Lymphatic: lymphadenopathy not noted Resp: Auscultation: diminished lung sounds Other: Coarse breath sounds Cardio: Rate: regular rate Rhythm: regular rhythm GI: Inspection: non-distended Auscultation: normal bowel sounds Urinary Catheter: Urinary Catheter: patent and draining and urine pink Skin: General skin exam: normal color Neuro: Other: Tired sleepy Extrem: General: no edema Psych: Other: pleasant, not agitated Objective Data Vital Signs Vital Signs: Vital Signs - 24 hr 02/02/20 14:00 02/02/20 16:00 02/02/20 19:57 Temperature 36.9 C 37.6 C Pulse Rate 78 76 90 Respiratory Rate 14 18 Blood Pressure 94/52 L 113/59 L Pulse Oximetry 94 91 02/02/20 20:00 02/02/20 21:16 02/03/20 00:00 Temperature 37.3 C Pulse Rate 90 90 Respiratory Rate 18 20 Blood Pressure 132/66 Pulse Oximetry 91 92 90 02/03/20 03:55 02/03/20 03:56 02/03/20 03:58 Temperature 37.4 C Pulse Rate 91 91 88 Respiratory Rate 40 H 40 H 36 H Blood Pressure 105
[2020-02-03] MEDS: POTASSIUM CHLORIDE 20 MEQ PACKET (FOR LIQUID) PO (13:07)
--- NOTE | 2020-02-03 14:06 | PC.NURSE ---
Addendum entered by Chanelle Angel RN 02/03/20 14:14: This patient, Tani Anna Jr., was received from [ ] on 02/03/20 at 1414. Personal belongings list checked and signed. Patient/family oriented to unit policies and routines Original Note: This patient, Tani Anna Jr., was admitted to 3 [facility] Surg Room 327-01. Patient/family oriented to hospital policies and general routines including ID bracelet, bed and alarms, visiting hours, pain management, procedures, bathroom and other care routines, personal items, smoking policy, room service/diet, and visiting hours. Valuables list has been completed. Information on how to activate the Rapid Response Team has been discussed. Patient/Family are encouraged to report perceived risks to care and to ask questions if they do not understand what they are told or what they should do.
--- NOTE | 2020-02-03 14:07 | PC.NURSE ---
This patient, Tani Anna Jr., was transferred to [[id number]] on 02/03/20 at 1408. Personal belongings sent with patient. Belongings list checked and signed with receiving [ ]. Report given to [Chanelle ZIMMERMAN]. Appropriate documentation sent with patient.
[2020-02-03 14:20] LABS: Legionella pneumophila Ag Ur Not Detected (Not Detected)
[2020-02-03 19:36] LABS: Glucose Point of Care 99 (65-105)
[2020-02-04 06:00] VITALS: BP 102/46; PULSE 64; RESP 16; TEMP 36.3; O2SAT 99
[2020-02-04 06:39] LABS: Blood Urea Nitrogen 16 mg/dL (9-20); Calcium 7.3 mg/dL (8.4-10.2); Carbon Dioxide 29 mmol/L (22-30); Chloride 106 mmol/L (98-107); Estimated CRCL calculation 61 ml/min; Estimated Glomerular Filt Rate > 60; Glucose 99 mg/dL (75-110); Potassium 3.9 mmol/L (3.4-5.0); Sodium 139 mmol/L (137-145)
[2020-02-04 06:53] LABS: Hematocrit 32.2 % (42.0-52.0); Hemoglobin 10.6 g/dL (14.0-18.0); Mean Corpuscular HGB Conc 32.9 g/dl (32-36); Mean Corpuscular Hemoglobin 33.4 pg (26-34); Mean Corpuscular Volume 101.6 fl (80-100); Mean Platelet Volume 10.8 fl (7.4-10.4); Platelet Count Result 231 k/mm3 (150-375); Red Blood Count 3.17 M/mm3 (4.6-6.20); Red Cell Distribution Width 13.8 % (11.5-14.5); White Blood Count 4.4 K/mm3 (4.5-10.0)
[2020-02-04] MEDS: ALBUTEROL SULFATE (*SP) AEROSOL 1 PUFF 2 PUFF INHALATION ×4 (08:43→19:37)
[2020-02-04 08:44] VITALS: PULSE 88; RESP 16; O2SAT 94
[2020-02-04] MEDS: DONEPEZIL HCL 10 MG TABLET PO (09:38)
[2020-02-04] MEDS: polyethylene glycoL 3350 17 GM POWD.PACK PO (09:39)
[2020-02-04] MEDS: FUROSEMIDE 40 MG TABLET PO ×2 (09:39→17:00)
[2020-02-04] MEDS: QUEtiapine FUMARATE 25 MG TABLET 50 MG PO ×2 (09:39→20:16)
[2020-02-04] MEDS: levETIRAcetam 500 MG TABLET PO ×2 (09:39→20:16)
[2020-02-04] MEDS: QUEtiapine FUMARATE 100 MG TABLET PO ×2 (09:40→20:16)
--- NOTE | 2020-02-04 12:34 | PM.IMPN ---
Progress Note: A&P Assessment and Plan (1) Sepsis: Qualifiers: Sepsis acute organ dysfunction status: without acute organ dysfunction Sepsis type: sepsis due to unspecified organism Qualified Code(s): A41.9 - Sepsis, unspecified organism Code(s): A41.9 - Sepsis, unspecified organism Status: Resolved Assessment and Plan: Continue IV ceftriaxone and azithromycin for pneumonia. Transfer to medical floor. (2) Pneumonia: Qualifiers: Laterality: bilateral Lung location: lower lobe of lung Pneumonia type: due to unspecified organism Qualified Code(s): J18.9 - Pneumonia, unspecified organism Code(s): J18.9 - Pneumonia, unspecified organism Status: Acute Assessment and Plan: Continue IV ceftriaxone and azithromycin for pneumonia. Transfer to medical floor. (3) Acute respiratory failure with hypoxia: Code(s): J96.01 - Acute respiratory failure with hypoxia Status: Acute Assessment and Plan: Continue IV ceftriaxone and azithromycin for pneumonia. Transfer to medical floor. Chest x-ray today shows small to moderate right pleural effusion, patchy bilateral airspace disease. Continue oxygen currently at 2 L. Will also continue IV ceftriaxone and azithromycin. Influenza screen is negative. Urine antigens for Legionella and pneumococcus are still pending. COVID negative as Per JOSE DAVID ID nurse. Continue albuterol Atrovent MDI. Add lasix orally. Pt had MBS pt to have soft bites. (4) Chronic kidney disease, stage 3: Code(s): N18.3 - Chronic kidney disease, stage 3 (moderate) Status: Acute (5) Chronic anemia: Code(s): D64.9 - Anemia, unspecified Status: Acute (6) Seizure: Code(s): R56.9 - Unspecified convulsions Status: Chronic Assessment and Plan: Pt is on keppra (7) Dementia: Qualifiers: Dementia type: unspecified type Dementia behavioral disturbance: with behavioral disturbance Qualified Code(s): F03.91 - Unspecified dementia with behavioral disturbance Code(s): F03.90 - Unspecified dementia without behavioral disturbance Status: Chronic Assessment and Plan: Pt is on seroquel (8) Down syndrome: Code(s): Q90.9 - Down syndrome, unspecified Status: Chronic (9) DVT prophylaxis: Code(s): Z29.9 - Encounter for prophylactic measures, unspecified Status: Acute Assessment and Plan: SCDs. Subjective Date/time seen: 02/04/20 12:34 Interval history: Date of Service: 01/31/2020. Admitted with sepsis and pneumonia. Patient is from a custodial. Known Down's syndrome, intellectual disability with occasional behavioral disturbances, dementia, seizure disorder and CKD stage 3. COVID testing is negative transfer to medical floor. Pt is pleasant no acute compliants. Pt still tired with mild cough Review of Systems Review of Systems: All systems reviewed & are unremarkable except as noted in HPI and below Constitutional: Constitutional: Reports fatigue Respiratory: Respiratory: Reports cough Exam Narrative: Exam Narrative: Very tired Const: General: no acute distress HENMT: Other: Unable to assess. Neck: Neck: supple Lymphatic: lymphadenopathy not noted Resp: Auscultation: diminished lung sounds Other: Coarse breath sounds Cardio: Rate: regular rate Rhythm: regular rhythm GI: Inspection: non-distended Auscultation: normal bowel sounds Urinary Catheter: Urinary Catheter: patent and draining and urine pink Skin: General skin exam: normal color Neuro: Other: Tired sleepy Extrem: General: no edema Objective Data Vital Signs Vital Signs: Vital Signs - 24 hr 02/03/20 14:41 02/03/20 15:03 02/03/20 22:00 Temperature 36.9 C 36.9 C Pulse Rate 93 98 Respiratory Rate 24 H 16 Blood Pressure 110/62 108/57 L Pulse Oximetry 95 94 02/04/20 06:00 02/04/20 08:44 Temperature 36.3 C L Pulse Rate 64 88 Respirator
[2020-02-04 14:00] VITALS: BP 91/56; PULSE 74; RESP 18; TEMP 36.9; O2SAT 97
[2020-02-04 22:00] VITALS: BP 102/67; PULSE 79; RESP 16; TEMP 36.6; O2SAT 91
[2020-02-05 05:52] LABS: Hematocrit 36.8 % (42.0-52.0); Mean Corpuscular HGB Conc 32.6 g/dl (32-36); Mean Corpuscular Hemoglobin 33.5 pg (26-34); Mean Corpuscular Volume 102.8 fl (80-100); Mean Platelet Volume 10.1 fl (7.4-10.4); Platelet Count Result 400 k/mm3 (150-375); Red Blood Count 3.58 M/mm3 (4.6-6.20); Red Cell Distribution Width 13.5 % (11.5-14.5); White Blood Count 5.3 K/mm3 (4.5-10.0)
[2020-02-05 06:00] VITALS: BP 119/88; PULSE 61; RESP 18; TEMP 36.7; O2SAT 100
[2020-02-05 06:18] LABS: Blood Urea Nitrogen 16 mg/dL (9-20); Calcium 8.1 mg/dL (8.4-10.2); Carbon Dioxide 34 mmol/L (22-30); Chloride 99 mmol/L (98-107); Estimated CRCL calculation 56 ml/min; Estimated Glomerular Filt Rate > 60; Glucose 101 mg/dL (75-110); Potassium 3.6 mmol/L (3.4-5.0); Sodium 137 mmol/L (137-145)
[2020-02-05] MEDS: POTASSIUM CHLORIDE 20 MEQ PACKET (FOR LIQUID) PO (08:53)
[2020-02-05] MEDS: polyethylene glycoL 3350 17 GM POWD.PACK PO (08:53)
[2020-02-05] MEDS: DONEPEZIL HCL 10 MG TABLET PO (08:54)
[2020-02-05] MEDS: levETIRAcetam 500 MG TABLET PO ×2 (08:54→21:01)
[2020-02-05] MEDS: QUEtiapine FUMARATE 25 MG TABLET 50 MG PO ×2 (08:54→21:01)
[2020-02-05] MEDS: FUROSEMIDE 40 MG TABLET PO ×2 (08:54→18:08)
[2020-02-05] MEDS: QUEtiapine FUMARATE 100 MG TABLET PO ×2 (08:55→21:01)
[2020-02-05] MEDS: ALBUTEROL SULFATE (*SP) AEROSOL 1 PUFF 2 PUFF INHALATION ×4 (09:07→20:14)
--- NOTE | 2020-02-05 13:46 | PM.IMPN ---
Progress Note: A&P Assessment and Plan (1) Sepsis: Qualifiers: Sepsis acute organ dysfunction status: without acute organ dysfunction Sepsis type: sepsis due to unspecified organism Qualified Code(s): A41.9 - Sepsis, unspecified organism Code(s): A41.9 - Sepsis, unspecified organism Status: Resolved Assessment and Plan: Continue IV ceftriaxone and azithromycin for pneumonia. Transfer to medical floor. (2) Pneumonia: Qualifiers: Laterality: bilateral Lung location: lower lobe of lung Pneumonia type: due to unspecified organism Qualified Code(s): J18.9 - Pneumonia, unspecified organism Code(s): J18.9 - Pneumonia, unspecified organism Status: Acute Assessment and Plan: Continue IV ceftriaxone and azithromycin for pneumonia. Transfer to medical floor. Date of Service: 02/05/2020. Admitted with sepsis and pneumonia. Patient is [place] [facility]. Known Down's syndrome, intellectual disability with occasional behavioral disturbances, dementia, seizure disorder and CKD stage 3. COVID testing is negative transfer to medical floor. Pt is pleasant no acute compliants. Pt still tired with mild cough unable to provide detailed review of symptoms, however repeat chest x-ray on 02/02 shows improvement white counts are now baseline and he has not had any fever will continue to monitor overnight and possibly discharge him in the morning (3) Acute respiratory failure with hypoxia: Code(s): J96.01 - Acute respiratory failure with hypoxia Status: Acute Assessment and Plan: Continue IV ceftriaxone and azithromycin for pneumonia. Transfer to medical floor. Chest x-ray today shows small to moderate right pleural effusion, patchy bilateral airspace disease. Continue oxygen currently at 2 L. Will also continue IV ceftriaxone and azithromycin. Influenza screen is negative. Urine antigens for Legionella and pneumococcus are still pending. COVID negative as Per JOSE DAVID ID nurse. Continue albuterol Atrovent MDI. Add lasix orally. Pt had MBS pt to have soft bites. (4) Chronic kidney disease, stage 3: Code(s): N18.3 - Chronic kidney disease, stage 3 (moderate) Status: Acute Assessment and Plan: Patient kidney function and now baseline (5) Chronic anemia: Code(s): D64.9 - Anemia, unspecified Status: Acute Assessment and Plan: Hemoglobin is stable (6) Seizure: Code(s): R56.9 - Unspecified convulsions Status: Chronic Assessment and Plan: Pt is on keppra (7) Dementia: Qualifiers: Dementia type: unspecified type Dementia behavioral disturbance: with behavioral disturbance Qualified Code(s): F03.91 - Unspecified dementia with behavioral disturbance Code(s): F03.90 - Unspecified dementia without behavioral disturbance Status: Chronic Assessment and Plan: Pt is on seroquel (8) Down syndrome: Code(s): Q90.9 - Down syndrome, unspecified Status: Chronic (9) DVT prophylaxis: Code(s): Z29.9 - Encounter for prophylactic measures, unspecified Status: Acute Assessment and Plan: SCDs. Subjective Date/time seen: 02/05/20 13:46 Interval history: Date of Service: 02/05/2020. Admitted with sepsis and pneumonia. Patient is [place] [facility]. Known Down's syndrome, intellectual disability with occasional behavioral disturbances, dementia, seizure disorder and CKD stage 3. COVID testing is negative transfer to medical floor. Pt is pleasant no acute compliants. Pt still tired with mild cough unable to provide detailed review of symptoms, however repeat chest x-ray on 02/02 shows improvement white counts are now baseline and he has not had any fever will continue to monitor overnight and possibly discharge him in the morning Review of Systems Review of Systems: ROS unobtainable: Yes unobtainable due to medical condition Exam Narrative: Exam Narrative: Very tir
[2020-02-05 14:00] VITALS: BP 112/65; PULSE 78; RESP 16; TEMP 36.6; O2SAT 94
[2020-02-05 20:16] VITALS: PULSE 79; RESP 16; O2SAT 93
[2020-02-05 22:00] VITALS: BP 99/76; PULSE 69; RESP 20; TEMP 37.1; O2SAT 95
[2020-02-06 06:00] VITALS: BP 99/67; PULSE 51; RESP 16; TEMP 36.2; O2SAT 98
[2020-02-06 06:19] LABS: Hematocrit 36.8 % (42.0-52.0); Hemoglobin 12.4 g/dL (14.0-18.0); Mean Corpuscular HGB Conc 33.7 g/dl (32-36); Mean Corpuscular Hemoglobin 33.6 pg (26-34); Mean Corpuscular Volume 99.7 fl (80-100); Mean Platelet Volume 9.9 fl (7.4-10.4); Platelet Count Result 383 k/mm3 (150-375); Red Blood Count 3.69 M/mm3 (4.6-6.20); Red Cell Distribution Width 13.5 % (11.5-14.5)
[2020-02-06 06:36] LABS: Blood Urea Nitrogen 17 mg/dL (9-20); Calcium 8.2 mg/dL (8.4-10.2); Carbon Dioxide 33 mmol/L (22-30); Chloride 100 mmol/L (98-107); Estimated CRCL calculation 47 ml/min; Estimated Glomerular Filt Rate 58; Glucose 104 mg/dL (75-110); Potassium 4.1 mmol/L (3.4-5.0); Sodium 136 mmol/L (137-145)
[2020-02-06] MEDS: ALBUTEROL SULFATE (*SP) AEROSOL 1 PUFF 2 PUFF INHALATION ×2 (08:26→12:30)
[2020-02-06 08:30] VITALS: O2SAT 95
[2020-02-06] MEDS: DONEPEZIL HCL 10 MG TABLET PO (09:26)
[2020-02-06] MEDS: POTASSIUM CHLORIDE 20 MEQ PACKET (FOR LIQUID) PO (09:27)
[2020-02-06] MEDS: polyethylene glycoL 3350 17 GM POWD.PACK PO (09:27)
[2020-02-06] MEDS: FUROSEMIDE 40 MG TABLET PO (09:27)
[2020-02-06] MEDS: levETIRAcetam 500 MG TABLET PO (09:27)
[2020-02-06] MEDS: QUEtiapine FUMARATE 25 MG TABLET 50 MG PO (09:28)
[2020-02-06] MEDS: QUEtiapine FUMARATE 100 MG TABLET PO (09:28)
--- NOTE | 2020-02-06 13:55 | PM.DS ---
DS: Diagnosis Admitting Diagnosis Admitting Diagnosis: Sepsis, unspecified organism Discharge Diagnosis (1) Sepsis: Qualifiers: Sepsis acute organ dysfunction status: without acute organ dysfunction Sepsis type: sepsis due to unspecified organism Qualified Code(s): A41.9 - Sepsis, unspecified organism Code(s): A41.9 - Sepsis, unspecified organism Status: Resolved Assessment and Plan: Continue IV ceftriaxone and azithromycin for pneumonia. Transfer to medical floor. (2) Pneumonia: Qualifiers: Laterality: bilateral Lung location: lower lobe of lung Pneumonia type: due to unspecified organism Qualified Code(s): J18.9 - Pneumonia, unspecified organism Code(s): J18.9 - Pneumonia, unspecified organism Status: Acute Assessment and Plan: Continue IV ceftriaxone and azithromycin for pneumonia. Transfer to medical floor. Date of Service: 02/05/2020. Admitted with sepsis and pneumonia. [facility]. Known Down's syndrome, intellectual disability with occasional behavioral disturbances, dementia, seizure disorder and CKD stage 3. COVID testing is negative transfer to medical floor. Pt is pleasant no acute compliants. Pt still tired with mild cough unable to provide detailed review of symptoms, however repeat chest x-ray on 02/02 shows improvement white counts are now baseline and he has not had any fever will continue to monitor overnight and possibly discharge him in the morning (3) Acute respiratory failure with hypoxia: Code(s): J96.01 - Acute respiratory failure with hypoxia Status: Acute Assessment and Plan: Continue IV ceftriaxone and azithromycin for pneumonia. Transfer to medical floor. Chest x-ray today shows small to moderate right pleural effusion, patchy bilateral airspace disease. Continue oxygen currently at 2 L. Will also continue IV ceftriaxone and azithromycin. Influenza screen is negative. Urine antigens for Legionella and pneumococcus are still pending. COVID negative as Per JOSE DAVID MILLS nurse. Continue albuterol Atrovent MDI. Add lasix orally. Pt had MBS pt to have soft bites. (4) Chronic kidney disease, stage 3: Code(s): N18.3 - Chronic kidney disease, stage 3 (moderate) Status: Acute Assessment and Plan: Patient kidney function and now baseline (5) Chronic anemia: Code(s): D64.9 - Anemia, unspecified Status: Acute Assessment and Plan: Hemoglobin is stable (6) Seizure: Code(s): R56.9 - Unspecified convulsions Status: Chronic Assessment and Plan: Pt is on keppra (7) Dementia: Qualifiers: Dementia type: unspecified type Dementia behavioral disturbance: with behavioral disturbance Qualified Code(s): F03.91 - Unspecified dementia with behavioral disturbance Code(s): F03.90 - Unspecified dementia without behavioral disturbance Status: Chronic Assessment and Plan: Pt is on seroquel (8) Down syndrome: Code(s): Q90.9 - Down syndrome, unspecified Status: Chronic (9) DVT prophylaxis: Code(s): Z29.9 - Encounter for prophylactic measures, unspecified Status: Acute Assessment and Plan: SCDs. DS: Summary Hospital Course Reason for hospitalization: Tani Anna is a 55-year-old male with Down syndrome, intellectual disability with occasional behavioral disturbances, dementia, history of seizures, benign prostatic hyperplasia, and chronic kidney disease stage 3 who presented to the emergency department earlier today via EMS from his jail, [facility], for evaluation of cough and fever. I have not been able to get a hold of a guardian or emergency contact, and at the time of my evaluation the patient is alert but he does not answer questions or follow commands. According to documentation, he has had a cough for the last couple of days, has been weak, shaky, sleeping more than usual, and has be
[2020-02-06 14:00] VITALS: BP 100/60; PULSE 74; RESP 16; TEMP 36.7; O2SAT 91
== END 2020-02-06 16:05 | disposition home or self-care (01) | DRG 871 ==
LOC: ANHED 16:29 → ANH2MED 17:17 → ANH3MEDSUR 22:18 → ANHIMU 02-02 10:09 → ANH3MEDSUR 02-06 13:55 → ANH2MED 02-07 15:24 → ANH3MEDSUR 02-07 15:24 → ANHICU 02-07 15:24 → ANHIMU 02-07 15:24
PROVIDERS: Family Medicine; Physician Assistant; Admitting Provider Hospitalist; Emergency Provider Emergency Medicine; PCP Family Medicine; Visit Provider Family Medicine
DX: A41.9 Sepsis, unspecified organism (principal); J18.9 Pneumonia, unspecified organism; J96.01 Acute respiratory failure with hypoxia; F02.81 Dementia in other diseases classified elsewhere, unspecified severity, with behavioral disturbance; Q90.9 Down syndrome, unspecified; F79 Unspecified intellectual disabilities; N40.0 Benign prostatic hyperplasia without lower urinary tract symptoms; N18.3 Chronic kidney disease, stage 3 (moderate); G30.9 Alzheimer's disease, unspecified; H91.90 Unspecified hearing loss, unspecified ear; D64.9 Anemia, unspecified; G40.909 Epilepsy, unspecified, not intractable, without status epilepticus; D63.1 Anemia in chronic kidney disease; Z20.828 Contact with and (suspected) exposure to other viral communicable diseases
CPT/HCPCS: 36415; 36600; 51701; 71045; 80048; 80053; 81001; 82805; 83605; 83735; 85025; 85027; 85610; 85730; 86140; 87040; 87449; 87804; 87899; 92610; 92611; 94640; 96365; 96368; 96375; 99285; A9270; J0131; J0456; J0696; J1953; J7040; J7120

== ENCOUNTER 2020-03-20 12:12 | Outpatient (CLI) | payer MEDICARE, MEDICAID, SELFPAY ==
--- NOTE | ~2020-03-20 | XR_ITS ---
EXAMINATION: XR chest 2V DATE: 03/20/2020 12:49 INDICATION: Pneumonia follow-up. TECHNIQUE: Frontal and lateral views of the chest were obtained. COMPARISON: Chest single view 02/03/2020 FINDINGS: The chest demonstrates clear lungs without pneumonia, pleural effusion, or pneumothorax. Th e heart size is normal. IMPRESSION: 1. No acute cardiopulmonary disease. Reviewed, dictated and finalized at location A.
== END 2020-03-20 12:13 | disposition home or self-care (01) ==
PROVIDERS: PCP Family Medicine; Visit Provider Family Medicine
DX: J18.9 Pneumonia, unspecified organism (principal)
CPT/HCPCS: 71046

== ENCOUNTER 2020-05-24 12:19 | Outpatient (CLI) | payer MEDICARE, MEDICAID, SELFPAY ==
--- NOTE | ~2020-05-24 | XR_ITS ---
XR chest 2V 05/24/2020 13:18 Indication: Shortness of breath Procedure: AP and lateral views of the chest Comparison: Comparison to multiple prior studies sequentially, with oldest reviewed study dated 01/28. Findings: Left basilar airspace disease, compatible with pneumonia. No pleural effusion. No edema or pneumothorax. Impression: 1: Left basilar airspace disease, compatible with pneumonia. Reviewed, dictated and finalized at location B. Impression: 1: Left basilar airspace disease, compatible with pneumonia.
[2020-05-24 14:14] LABS: Alanine Aminotransferase 107 U/L (4-50); Albumin Level 3.8 g/dL (3.5-5.1); Alkaline Phosphatase 117 U/L (38-126); Aspartate Amino Transferase 185 U/L (17-59); Bilirubin,Total 0.5 mg/dL (0.2-1.3); Blood Urea Nitrogen 20 mg/dL (9-20); Calcium 8.5 mg/dL (8.4-10.2); Carbon Dioxide 29 mmol/L (22-30); Chloride 103 mmol/L (98-107); Estimated Glomerular Filt Rate > 60; Glucose 95 mg/dL (75-110); Sodium 137 mmol/L (137-145)
== END 2020-05-24 12:20 | disposition home or self-care (01) ==
PROVIDERS: PCP Family Medicine; Visit Provider Family Medicine
DX: R50.9 Fever, unspecified (principal); R91.8 Other nonspecific abnormal finding of lung field
CPT/HCPCS: 36415; 71046; 80053

== ENCOUNTER 2020-06-15 14:43 | Outpatient (CLI) | payer MEDICARE, MEDICAID, SELFPAY ==
--- NOTE | ~2020-06-15 | XR_ITS ---
EXAMINATION: XR chest 2V DATE: 06/15/2020 15:13 INDICATION: History of pneumonia and productive cough TECHNIQUE: AP and lateral views of the chest are obtained. COMPARISON: 05/24/2020 FINDINGS: Left basilar airspace opacities persist but have improved. There is no pleural effusion or pneumothorax. The cardiomediastinal silhouette is normal. There is severe thoracic spondylosis. IMPRESSION: 1. Improving left basilar airspace opacities, consistent with pneumonia. Reviewed, dictated and finalized at location B.
== END 2020-06-15 14:44 | disposition home or self-care (01) ==
PROVIDERS: PCP Nurse Practitioner Family; Visit Provider Nurse Practitioner Family
DX: R05 Cough (principal); J18.9 Pneumonia, unspecified organism; R91.8 Other nonspecific abnormal finding of lung field
CPT/HCPCS: 71046

== ENCOUNTER 2020-08-25 13:16 | Emergency (ER) | payer MEDICARE, MEDICAID, SELFPAY ==
--- NOTE | ~2020-08-25 | XR_ITS ---
EXAMINATION: XR wrist LT min 3V DATE: 08/25/2020 13:47 INDICATION: Left wrist swelling. TECHNIQUE: 4 views of left wrist were obtained. COMPARISON: None. FINDINGS: Bone alignment is normal. No fracture. There is mild osteoarthritis of first carpometacarpa l joint. IMPRESSION: 1. Mild osteoarthritis of first carpometacarpal joint. Reviewed, dictated and finalized at location A.
--- NOTE | ~2020-08-25 | XR_ITS ---
EXAMINATION: XR hand LT min 3V DATE: 08/25/2020 13:47 INDICATION: Left hand swelling. TECHNIQUE: 4 views of left hand were obtained. COMPARISON: None. FINDINGS: Bone alignment is normal. No fracture. There is mild osteoarthritis of first carpometacarpa l joint. IMPRESSION: 1. Mild osteoarthritis of first carpometacarpal joint. Reviewed, dictated and finalized at location A.
[2020-08-25 13:18] VITALS: BP 122/84; PULSE 90; RESP 20; TEMP 36.5; O2SAT 98
--- NOTE | 2020-08-25 13:34 | PC.NURSE ---
Pt to xray via wheelchair.
[2020-08-25] MEDS: IBUPROFEN 600 MG TABLET PO (14:05)
--- NOTE | 2020-08-25 14:06 | ED.UPPEXIN ---
HPI - Extremity Injury (Upper) General Chief Complaint: Extremity Injury, Upper Stated Complaint: FALL- L HAND PAIN Time Seen by Provider: 08/25/20 13:19 Source: other (caregiver) Mode of arrival: ambulatory Limitations: no limitations History of Present Illness HPI narrative: This patient is a 55 year old male who presents from a nursing home for evaluation of bruising and swelling to his left hand. His caregiver reports patient has dementia and severe cognitive deficits. She states he is unable to give history but he is at his baseline. She reports she saw patient last night and he did not have signs of injury to his left hand. This morning when she returned he was found to have swelling to his left hand. She reports he did not seem to use his hand as much , but now he is moving it like normal. She did not notice any other sign of injury. Related Data Home Medications Medication Instructions Recorded Confirmed cholecalciferol (vitamin D3) 1,000 unit PO DAILY 01/29/20 01/29/20 [Vitamin D3] docusate sodium 100 mg PO DAILY 01/29/20 01/29/20 donepezil 10 mg PO DAILY 01/29/20 01/29/20 finasteride 5 mg PO DAILY 01/29/20 01/29/20 levetiracetam 500 mg PO BID 01/29/20 01/29/20 polyethylene glycol 3350 [Miralax] 17 g PO DAILY 01/29/20 01/29/20 quetiapine 100 mg PO BID 01/29/20 01/29/20 quetiapine [Seroquel] 50 mg PO BID 01/29/20 01/29/20 senna 8.6 mg PO BID PRN 01/29/20 01/29/20 tamsulosin 0.4 mg PO DAILY 01/29/20 01/29/20 Allergies Allergy/AdvReac Type Severity Reaction Status Date / Time SODA Allergy Unknown Unknown Uncoded 08/25/20 13:36 Review of Systems Review of Systems: ROS unobtainable: Yes unobtainable due to medical condition PMFSH Past Medical History Medical History (Updated 08/25/20 @ 14:12 by Alena Godwin MD) Alzheimer disease Behavior disturbance Chronic anemia Chronic kidney disease, stage 3 Deaf : Baseline creatinine between 1.5 and 1.60. Dementia Down syndrome GERD (gastroesophageal reflux disease) Seizure Surgical History Surgical History (Updated 01/29/20 @ 15:20 by Elena Alston) No pertinent past surgical history Social History Social History (Updated 01/29/20 @ 22:43 by Genie Saunders PA-C) Social History: The patient lives in a nursing home, [facility]. He is unable to provide me with any family history. His legal guardian is Izabela Blackburn. He is listed as a full code. Smoking status: Never smoker Alcohol intake: never Gender identity (if verbalized by the patient): Male Spiritual care concerns: No Agree to blood products: No Exam Const: General: no acute distress and alert Other: nonverbal HENMT: Head: atraumatic Face and sinus: face symmetric Mouth: Yes Normal oral and palatal mucosa present, Yes lip normal, Yes oropharynx normal and Yes moist mucous membranes Chest: Chest palpation & inspection: normal inspection of the chest and no tenderness Resp: Effort & Inspection: normal respiratory effort and no retractions Auscultation: clear to auscultation bilaterally Cardio: Rate: regular rate Rhythm: regular rhythm Heart sounds: no murmurs GI: GI Palp: Yes Soft to palpation, No Tenderness to palpation present (GI), No Guarding due to palpation present (GI) and No Rigid due to palpation Neuro: General: moves all extremities Extrem: Other: left hand with bruising along palmar aspect of thumb and wrist. No significant swelling or deformity . He is clapping hands together Course Vital Signs Vital signs: Vital Signs Temperature 97.7 F 08/25/20 13:18 Pulse Rate 90 08/25/20 13:18 Respiratory Rate 20 08/25/20 13:18 Blood Pressure 122/84 08/25/20 13:18 Pulse Oximetry 98 08/25/20 13:18 Temperature 97.7 F 08/25/20 13:18 Pulse Rate 77 08/25/20 14:46 Respiratory Rate 18 08/25/20 14:46 Blood Pressure 135/83 08/25/20 14:46 Pulse Oximetry 100 08/25/20 14:46 MDM - Extremity Injury (Upper) Imag
[2020-08-25 14:46] VITALS: BP 135/83; PULSE 77; RESP 18; O2SAT 100
== END 2020-08-25 14:45 | disposition home or self-care (01) ==
PROVIDERS: Emergency Provider General Practice; PCP Family Medicine
DX: S60.222A Contusion of left hand, initial encounter (principal); G30.9 Alzheimer's disease, unspecified; F02.81 Dementia in other diseases classified elsewhere, unspecified severity, with behavioral disturbance; N18.30 Chronic kidney disease, stage 3 unspecified; D63.1 Anemia in chronic kidney disease; Q90.9 Down syndrome, unspecified; H91.90 Unspecified hearing loss, unspecified ear; K21.9 Gastro-esophageal reflux disease without esophagitis; M18.9 Osteoarthritis of first carpometacarpal joint, unspecified
CPT/HCPCS: 73110; 73130; 99283; A9270

== ENCOUNTER 2020-09-22 17:43 | Emergency (ER) | payer MEDICARE, MEDICAID, SELFPAY ==
--- NOTE | ~2020-09-22 | CT_ITS ---
EXAMINATION: CT brain wo con INDICATION: Generalized weakness, decreased level of awareness COMPARISON: 10/03/2018 TECHNIQUE: Standard unenhanced head CT. The dose-length product (DLP) was 605.33 mGy-cm. The mA was a djusted according to patient size. Iterative reconstruction technique was employed. FINDINGS: There is no acute intraparenchymal hemorrhage. There is an unchanged 2.7 cm simple cystic l esion in the body of the right lateral ventricle. Differential is as previously described. No evidenc e of acute infarction. There is mild periventricular and subcortical hypodensity probably related to small vessel ischemic disease. There is mild prominence of the sulci and ventricles related to cerebr al atrophy. Intracranial calcified cerebral atherosclerosis is noted. There are no extra-axial collec tions. There is no mass effect or midline shift. The orbits and soft tissues are unremarkable. Tiny mastoid effusions are noted. Cerumen is noted in the external auditory canals. IMPRESSION: 1. No acute intracranial abnormality. 2. Age related findings. 3. Unchanged cystic lesion in the body of the right lateral ventricle, differential as previously cory cribed. Reviewed, dictated and finalized at location A. HERMY EQUIPMENT REPAIRER IMPRESSION: 1. No acute intracranial abnormality. 2. Age related findings. 3. Unchanged cystic lesion in the body of the right lateral ventricle, differen tial as previously described.
--- NOTE | ~2020-09-22 | XR_ITS ---
EXAMINATION: XR chest 1V portable INDICATION: Generalized weakness TECHNIQUE: Portable AP chest at 2240 hours COMPARISON: 06/15/2020 FINDINGS: There are minimal opacities of the right mid and lower lung zones. No pleural effusion or p neumothorax is identified. The cardiomediastinal silhouette is stable. IMPRESSION: 1. Patchy airspace opacities of the right mid and lower lung zones, likely pneumonia. Reviewed, dictated and finalized at location A. [employer] IMPRESSION: 1. Patchy airspace opacities of the right mid and lower lung zones, likely pneu monia.
[2020-09-22 18:05] VITALS: BP 115/68; PULSE 92; RESP 16; TEMP 37.2; O2SAT 98
--- NOTE | 2020-09-22 18:10 | ECG_ITS ---
Measurements Intervals [place] Rate: 75 P: 28 NV: 160 QRS: 6 QRSD: 76 T: 10 QT: 356 QTc: 400 Interpretive Statements SINUS RHYTHM BORDERLINE T WAVE ABNORMALITY- INFERIOR LEADS BASELINE ARTIFACT- I, II, III, AVR, AVL, AVF BORDERLINE ECG Electronically Signed On 09-23-2020 8:53:26 MARINE ENGINEERING CONSULTANT by Evans Houston D.O.
[2020-09-22 18:50] LABS: Hematocrit 36.2 % (42.0-52.0); Hemoglobin 12.2 g/dL (14.0-18.0); Immature Granulocyte Absolute 0.01 K/mm3 (0.00-0.031); Immature Granulocyte Percent A 0.4 % (0-0.5); Lymphocytes Absolute Auto 0.54 K/mm3 (0.9-3.2); Lymphocytes Percent Auto 23.7 % (18.3-44.2); Mean Corpuscular HGB Conc 33.7 g/dl (32-36); Mean Corpuscular Hemoglobin 33.5 pg (26-34); Mean Corpuscular Volume 99.5 fl (80-100); Mean Platelet Volume 9.9 fl (7.4-10.4); Monocytes Absolute Auto 0.2 K/mm3 (0.1-0.6); Monocytes Percent Auto 9.2 % (2.6-8.5); Neutrophils Absolute Auto 1.5 K/mm3 (1.3-6.7); Neutrophils Percent Auto 66.7 % (45.5-73.1); Platelet Count Result 172 k/mm3 (150-375); Red Blood Count 3.64 M/mm3 (4.6-6.20); Red Cell Distribution Width 13.2 % (11.5-14.5); White Blood Count 2.3 K/mm3 (4.5-10.0)
[2020-09-22 19:04] LABS: Alanine Aminotransferase 28 U/L (4-50); Albumin Level 3.3 g/dL (3.5-5.1); Alkaline Phosphatase 81 U/L (38-126); Anion Gap 7 mmol/L (8-16); Aspartate Amino Transferase 60 U/L (17-59); Bilirubin,Total 0.4 mg/dL (0.2-1.3); Blood Urea Nitrogen 16 mg/dL (9-20); Calcium 8.2 mg/dL (8.4-10.2); Carbon Dioxide 29 mmol/L (22-30); Chloride 103 mmol/L (98-107); Estimated CRCL calculation 49 ml/min; Estimated Glomerular Filt Rate > 60; Glucose 143 mg/dL (75-110); Potassium 3.8 mmol/L (3.4-5.0); Sodium 139 mmol/L (137-145)
--- NOTE | 2020-09-22 22:02 | ED.GENADULT ---
HPI - General Adult General Chief complaint: Unspecified Stated complaint: fever, possible covid exposure Time Seen by Provider: 09/22/20 21:48 Source: other (caregiver) Limitations: dementia History of Present Illness HPI narrative: This patient is a 55 year old male with history of Downs' syndrome , dementia, chronic renal disease who presents for a care facility for evaluation of a fever. His caregiver is at bedside and she reports today patient has not want to eat like normal. He also does not seem to want to walk. She also noted he developed a fever prior to being sent to the ER. He was not given tylenol on arrival and he was afebrile in ER tonight. He is unable to give a history Related Data Home Medications Medication Instructions Recorded Confirmed cholecalciferol (vitamin D3) 1,000 unit PO DAILY 01/29/20 01/29/20 [Vitamin D3] docusate sodium 100 mg PO DAILY 01/29/20 01/29/20 donepezil 10 mg PO DAILY 01/29/20 01/29/20 finasteride 5 mg PO DAILY 01/29/20 01/29/20 levetiracetam 500 mg PO BID 01/29/20 01/29/20 polyethylene glycol 3350 [Miralax] 17 g PO DAILY 01/29/20 01/29/20 quetiapine 100 mg PO BID 01/29/20 01/29/20 quetiapine [Seroquel] 50 mg PO BID 01/29/20 01/29/20 senna 8.6 mg PO BID PRN 01/29/20 01/29/20 tamsulosin 0.4 mg PO DAILY 01/29/20 01/29/20 Allergies Allergy/AdvReac Type Severity Reaction Status Date / Time SODA Allergy Unknown Unknown Uncoded 08/25/20 13:36 Review of Systems Review of Systems: ROS unobtainable: Yes other (dementia) [facility] Past Medical History Medical History Alzheimer disease Behavior disturbance Chronic anemia Chronic kidney disease, stage 3 Deaf : Baseline creatinine between 1.5 and 1.60. Dementia Down syndrome GERD (gastroesophageal reflux disease) Seizure Surgical History Surgical History (Updated 01/29/20 @ 15:20 by Elena Alston) No pertinent past surgical history Social History Social History (Updated 01/29/20 @ 22:43 by Genie Saunders PA-C) Social History: The patient lives in a jail, [facility]. He is unable to provide me with any family history. His legal guardian is Izabela Blackburn. He is listed as a full code. Smoking status: Never smoker Alcohol intake: never Gender identity (if verbalized by the patient): Male Spiritual care concerns: No Agree to blood products: No Exam Const: General: cooperative, no acute distress and well developed Limitations: other limitations (dementia) HENMT: Mouth: Yes Normal oral and palatal mucosa present, Yes lip normal, Yes oropharynx normal and Yes moist mucous membranes Throat: posterior oropharynx normal, tonsils normal and uvula midline Eyes: Pupils: Equal, round and reactive pupils present EOM: EOMs intact bilaterally Chest: Chest palpation & inspection: normal inspection of the chest Resp: Effort & Inspection: normal respiratory effort and symmetric chest movement Auscultation: clear to auscultation bilaterally Cardio: Jugular venous distension: no JVD Rate: regular rate Rhythm: regular rhythm Heart sounds: no murmurs GI: GI Palp: Yes Soft to palpation, No Tenderness to palpation present (GI), No Guarding due to palpation present (GI) and No Rigid due to palpation Skin: General skin exam: normal color Neuro: Cranial nerves: Yes CN's II-XII intact bilaterally Psych: Appearance: well kempt Course Reevaluation(s) Reevaluation #1: I discussed with care given patient will be treated for presumed pneumonia. He may be positive for covid. He is not hypoxic. Date: 09/23/20 Time: 05:19 Vital Signs Vital signs: Vital Signs Temperature 99.0 F 09/22/20 18:05 Pulse Rate 92 09/22/20 18:05 Respiratory Rate 16 09/22/20 18:05 Blood Pressure 115/68 09/22/20 18:05 Pulse Oximetry 98 09/22/20 18:05 Temperature 98.2 F 09/23/20 07:18 Pulse Rate 65 09/23/20 07:18 Respiratory Rate 18
[2020-09-22] MEDS: ACETAMINOPHEN 500 MG TABLET 1000 MG PO (22:53)
[2020-09-22 23:05] LABS: Lactic Acid Reflex 1.1 mmol/L (0.7-2.1)
[2020-09-22 23:08] VITALS: RESP 20
[2020-09-23 00:17] LABS: Add Urine Microscopic? YES; Appearance Urine Clear (Clear); Bilirubin Urine Negative (Negative); Blood Urine Negative (Negative); Color Urine Yellow (Yellow); Glucose Urine UA Negative (Negative); Ketones Urine Negative (Negative); Leukocyte Esterase Ur Negative LEU/UL (Negative); Mucus Urine Rare /lpf; Nitrate Urine Negative (Negative); Protein Urine 1+ mg/dL (Negative); RBC Urine 0-2 /hpf (0-2); Specific Grav Ur 1.014 (1.001-1.035); Urobilinogen Urine Negative mg/dL (<2.0); WBC Urine 0-3 /hpf
[2020-09-23] MEDS: cefTRIAXone 1 GM VIAL IM (03:08)
[2020-09-23 07:18] VITALS: PULSE 65; RESP 18; TEMP 36.8; O2SAT 98
[2020-09-23 23:54] LABS: SARS-CoV-2 RNA PCR Positive
== END 2020-09-23 07:19 ==
PROVIDERS: Emergency Medicine; Emergency Provider General Practice; PCP Family Medicine
DX: U07.1 COVID-19 (principal); J12.89 Other viral pneumonia; Q90.9 Down syndrome, unspecified; N18.30 Chronic kidney disease, stage 3 unspecified; D64.9 Anemia, unspecified; G30.9 Alzheimer's disease, unspecified; F02.80 Dementia in other diseases classified elsewhere, unspecified severity, without behavioral disturbance, psychotic disturbance, mood disturbance, and anxiety; R94.31 Abnormal electrocardiogram [ECG] [EKG]; H91.90 Unspecified hearing loss, unspecified ear
CPT/HCPCS: 36415; 70450; 71045; 80053; 81001; 83605; 85025; 87635; 87804; 93005; 96372; 99284; A9270; C9803; J0696; U0003

== ENCOUNTER 2020-10-02 00:14 | Inpatient (IN) | payer MEDICARE, MEDICAID, SELFPAY ==
[2020-10-02] VITALS (26 sets, daily range): BP systolic 92–120; BP diastolic 47–104; PULSE 64–111; RESP 14–36; TEMP 36–38.4; O2SAT 91–99; BMI 23.6
--- NOTE | ~2020-10-02 | XR_ITS ---
XR chest 1V portable 10/02/2020 00:59 Indication: Hypoxia. Procedure: AP portable chest Comparison: Comparison to multiple prior studies sequentially, with oldest reviewed study dated 03/20. Findings: There are patchy infiltrates of the mid and lower lung zones bilaterally. No pleural effusi on, edema or pneumothorax. No acute osseous abnormality. Impression: 1: Patchy bilateral infiltrates of the mid and lower lung zones, compatible with pneumonia. Reviewed, dictated and finalized at location A. [employer]ANS [employer] SURGEONS Impression: 1: Patchy bilateral infiltrates of the mid and lower lung zones, compatible wit h pneumonia.
--- NOTE | 2020-10-02 00:14 | ED.SOB ---
HPI - SOB/Dyspnea General Chief Complaint: Shortness of Breath/Dyspnea Stated Complaint: resp distress Time Seen by Provider: 10/02/20 00:14 History of Present Illness HPI Narrative: 55 y/o male w/ h/o Down's syndrome, deafness, COVID-19 brought in by EMS for respiratory distress. Tested positive for COVID-19 on 09/22. Brought in on 15 liters by NRB w/ oxygen saturation in the 80s. Febrile during triage. History extremely limited due to mental status and deafness. Related Data Home Medications Medication Instructions Recorded Confirmed cholecalciferol (vitamin D3) 1,000 unit PO DAILY 01/29/20 01/29/20 [Vitamin D3] docusate sodium 100 mg PO DAILY 01/29/20 01/29/20 donepezil 10 mg PO DAILY 01/29/20 01/29/20 finasteride 5 mg PO DAILY 01/29/20 01/29/20 levetiracetam 500 mg PO BID 01/29/20 01/29/20 polyethylene glycol 3350 [Miralax] 17 g PO DAILY 01/29/20 01/29/20 quetiapine 100 mg PO BID 01/29/20 01/29/20 quetiapine [Seroquel] 50 mg PO BID 01/29/20 01/29/20 senna 8.6 mg PO BID PRN 01/29/20 01/29/20 tamsulosin 0.4 mg PO DAILY 01/29/20 01/29/20 Allergies Allergy/AdvReac Type Severity Reaction Status Date / Time SODA Allergy Unknown Unknown Uncoded 08/25/20 13:36 Review of Systems Review of Systems: ROS unobtainable: Yes unobtainable due to mental status PMFSH Past Medical History Medical History Alzheimer disease Behavior disturbance Chronic anemia Chronic kidney disease, stage 3 Deaf : Baseline creatinine between 1.5 and 1.60. Dementia Down syndrome GERD (gastroesophageal reflux disease) Seizure Surgical History Surgical History No pertinent past surgical history Social History Social History Social History: The patient lives in a care home, [facility]. He is unable to provide me with any family history. His legal guardian is Izabela Blackburn. He is listed as a full code. Smoking status: Never smoker Alcohol intake: never Gender identity (if verbalized by the patient): Male Spiritual care concerns: No Agree to blood products: No Exam Const: General: ill appearing acutely and chronically Nutritional Appearance: well nourished HENMT: Mouth: Yes dry mucous membranes Neck: Neck: normal visual inspection Resp: Effort & Inspection: labored and tachypneic Auscultation: rhonchi Cardio: Rate: tachycardic Rhythm: regular rhythm GI: GI Palp: Yes Soft to palpation and No Tenderness to palpation present (GI) Skin: General skin exam: normal color Neuro: General: moves all extremities Other: alert Extrem: General: edema bilateral (trace) Course Vital Signs Vital signs: Vital Signs Temperature 38.4 C H 10/02/20 00:18 Pulse Rate 106 H 10/02/20 00:18 Respiratory Rate 36 H 10/02/20 00:18 Blood Pressure 120/104 H 10/02/20 00:18 Pulse Oximetry 91 10/02/20 00:18 Temperature 38.4 C H 10/02/20 00:18 Pulse Rate 100 10/02/20 03:26 Respiratory Rate 24 H 10/02/20 03:26 Blood Pressure 104/66 10/02/20 03:26 Pulse Oximetry 94 10/02/20 03:26 MDM - SOB/Dyspnea Medical Records Attestation: I reviewed the patient's medical records. Lab Data Attestation: I reviewed the patient's lab results. Result diagrams: 10/02/20 00:37 10/02/20 00:37 Labs: Lab Results 10/02/20 10/02/20 10/02/20 Range/Units 00:37 00:37 00:37 WBC 10.2 H (4.5-10.0) K/mm3 RBC 3.88 L (4.6-6.20) M/mm3 Hgb 12.9 L (14.0-18.0) g/dL Hct 39.1 L (42.0-52.0) % MCV 100.8 H (80-100) fl MCH 33.2 (26-34) pg MCHC 33.0 (32-36) g/dl RDW 13.5 (11.5-14.5) % Plt Count 304 D (150-375) k/mm3 MPV 9.8 (7.4-10.4) fl Immature Gran % (Auto) 0.4 (0-0.5) % Neut % (Auto) 84.4 H (45.5-73.1) % Lymph % (Auto) 10.1 L (18.3-44.2) % [place] % (Auto) 4
[2020-10-02 00:41] LABS: Alveolar/Arterial O2 Gradient 618.5 mmHg; Base Excess ABG 4.1 mEq/l (+/-2.0); Fractional Inspired Oxygen 100 %; HCO3 ABG 27.4 mEq/l (22.0-26.0); Oxygen Content ABG 17.3 %vol (16.0-22.0); Oxyhemoglobin 90.6 % THb (90.0-100.0); PO2 ABG 57.5 mmHg (80.0-100.0); PO2 FiO2 Ratio Arterial Blood 0.57 %; Total Hemoglobin 13.6 g/dL (12.0-18.0); pH ABG 7.488 (7.350-7.450)
[2020-10-02 00:42] LABS: Device NON-REBREATHER MASK
[2020-10-02 00:50] LABS: Basophils Percent Auto 0.4 % (0.2-1.2); Eosinophils Percent Auto 0.1 % (0-4.4); Hematocrit 39.1 % (42.0-52.0); Hemoglobin 12.9 g/dL (14.0-18.0); Immature Granulocyte Absolute 0.04 K/mm3 (0.00-0.031); Immature Granulocyte Percent A 0.4 % (0-0.5); Lymphocytes Absolute Auto 1.03 K/mm3 (0.9-3.2); Lymphocytes Percent Auto 10.1 % (18.3-44.2); Mean Corpuscular Hemoglobin 33.2 pg (26-34); Mean Corpuscular Volume 100.8 fl (80-100); Mean Platelet Volume 9.8 fl (7.4-10.4); Monocytes Absolute Auto 0.5 K/mm3 (0.1-0.6); Monocytes Percent Auto 4.6 % (2.6-8.5); Neutrophils Absolute Auto 8.6 K/mm3 (1.3-6.7); Neutrophils Percent Auto 84.4 % (45.5-73.1); Platelet Count Result 304 k/mm3 (150-375); Red Blood Count 3.88 M/mm3 (4.6-6.20); Red Cell Distribution Width 13.5 % (11.5-14.5); White Blood Count 10.2 K/mm3 (4.5-10.0)
[2020-10-02 01:03] LABS: INR 1.1; Partial Thromboplastin Time 31.8 SECONDS (22.3-36.8); Prothrombin Time 14.8 Seconds (11.1-14.7)
[2020-10-02 01:04] LABS: Lactic Acid Reflex 1.2 mmol/L (0.7-2.1)
[2020-10-02 01:07] LABS: Alanine Aminotransferase 25 U/L (4-50); Albumin Level 3.3 g/dL (3.5-5.1); Alkaline Phosphatase 98 U/L (38-126); Anion Gap 5 mmol/L (8-16); Aspartate Amino Transferase 50 U/L (17-59); Bilirubin,Total 0.8 mg/dL (0.2-1.3); Blood Urea Nitrogen 18 mg/dL (9-20); CRP 8.3 mg/dL (<1.0); Calcium 8.2 mg/dL (8.4-10.2); Carbon Dioxide 30 mmol/L (22-30); Chloride 104 mmol/L (98-107); Estimated CRCL calculation 45 ml/min; Estimated Glomerular Filt Rate > 60; Glucose 145 mg/dL (75-110); Potassium 4.2 mmol/L (3.4-5.0); Sodium 139 mmol/L (137-145)
[2020-10-02] MEDS: ALBUTEROL SULFATE NEB 2.5 MG/0.5 ML INH 5 MG INHALATION ×4 (01:46→20:57)
--- NOTE | 2020-10-02 02:06 | PC.NURSE ---
angelia is [facility] [phone]
[2020-10-02 02:33] LABS: Add Urine Microscopic? NO; Appearance Urine Clear (Clear); Bilirubin Urine Negative (Negative); Blood Urine Negative (Negative); Color Urine Yellow (Yellow); Glucose Urine UA Negative (Negative); Ketones Urine Negative (Negative); Leukocyte Esterase Ur Negative LEU/UL (Negative); Nitrate Urine Negative (Negative); Protein Urine Negative (Negative); Specific Grav Ur 1.013 (1.001-1.035); Urobilinogen Urine Negative mg/dL (<2.0)
--- NOTE | 2020-10-02 05:13 | PC.NURSE ---
room not ready , floor will not take report x 3
[2020-10-02 05:38] LABS: Alveolar/Arterial O2 Gradient 154.3 mmHg; Base Excess ABG 0.7 mEq/l (+/-2.0); Fractional Inspired Oxygen 45 %; HCO3 ABG 25.7 mEq/l (22.0-26.0); Oxygen Content ABG 18.1 %vol (16.0-22.0); Oxygen Saturation ABG 98.3 % (95.0-100.0); Oxyhemoglobin 97.2 % THb (90.0-100.0); PCO2 ABG 42.5 mmHg (35.0-45.0); PO2 ABG 118.2 mmHg (80.0-100.0); PO2 FiO2 Ratio Arterial Blood 2.63 %; Total Hemoglobin 13.1 g/dL (12.0-18.0); pH ABG 7.399 (7.350-7.450)
[2020-10-02 05:39] LABS: Device NASAL CANNULA; Modified Allen's Test Pass; Site Drawn RIGHT RADIAL
--- NOTE | 2020-10-02 05:59 | PC.NURSE ---
2nd floor unable to take report
--- NOTE | 2020-10-02 07:00 | ADMGEN ---
This patient, Tani Anna Jr., was admitted to IMU Room 213-01. Patient/family oriented to hospital policies and general routines including ID bracelet, bed and alarms, visiting hours, pain management, procedures, bathroom and other care routines, personal items, smoking policy, room service/diet, and visiting hours. Information on how to activate the Rapid Response Team has been discussed. Patient/Family are encouraged to report perceived risks to care and to ask questions if they do not understand what they are told or what they should do.
--- NOTE | 2020-10-02 13:26 | PM.IMHP ---
H&P: HPI History of Present Illness Date/Time: 10/02/20 13:26 Chief complaint: Acute respiratory w/hypoxia/COVID 19/pneumonia Narrative: Tani Anna Jr. is a 55 year old male with past history of down syndrome and recent COVID-19 09/22/2020 presents to the ED with dyspnea. Patient is blind and deaf, unable to get history. He lives in a [facility]. Was started on 15 L oxygen non-rebreather with ABG PO2 57.5 and then subsequently weaned on 6 L. UA negative. COVID-19 positive on 09/22/2020. Chest x-ray consistent with patchy bilateral infiltrates and considering his recent COVID-19 diagnosis likely etiology. Patiented IMU for hypoxia requiring non-rebreather, by the time I saw him he was down to 6 L. Review of Systems Review of Systems: ROS unobtainable: Yes unobtainable due to medical condition and unobtainable due to mental status PMFSH Past Medical History Medical History Alzheimer disease Behavior disturbance Chronic anemia Chronic kidney disease, stage 3 Deaf : Baseline creatinine between 1.5 and 1.60. Dementia Down syndrome GERD (gastroesophageal reflux disease) Seizure Surgical History Surgical History No pertinent past surgical history Social History Social History Social History: The patient lives in a [facility], [facility]. He is unable to provide me with any family history. His legal guardian is Izabela Blackburn. He is listed as a full code. Smoking status: Never smoker Alcohol intake: never Substance use: never Spiritual care concerns: No Agree to blood products: No Meds Home Medications and Allergies Home Medications Medication Instructions Recorded Confirmed Type cholecalciferol (vitamin D3) 1,000 unit PO DAILY 01/29/20 10/02/20 History [Vitamin D3] docusate sodium 100 mg PO DAILY 01/29/20 10/02/20 History donepezil 10 mg PO DAILY 01/29/20 10/02/20 History finasteride 5 mg PO DAILY 01/29/20 10/02/20 History levetiracetam 500 mg PO BID 01/29/20 10/02/20 History quetiapine 100 mg PO BID 01/29/20 10/02/20 History senna 8.6 mg PO BID PRN 01/29/20 10/02/20 History tamsulosin 0.4 mg PO DAILY 01/29/20 10/02/20 History albuterol sulfate [Ventolin HFA] 2 puff INHALATION QID PRN #6.7 g 09/23/20 10/02/20 Rx Allergies Allergy/AdvReac Type Severity Reaction Status Date / Time doxycycline AdvReac Severe Seizure Verified 10/02/20 08:29 tomato AdvReac Intermediate Other Verified 10/02/20 08:28 SODA AdvReac Intermediate Other Uncoded 10/02/20 08:28 Vital Signs Vital Signs - 24 hr 10/02/20 00:18 10/02/20 01:52 10/02/20 02:45 Temperature 38.4 C H Pulse Rate 106 H 111 H 110 H Respiratory Rate 36 H 26 H 24 H Blood Pressure 120/104 H 109/79 111/74 Pulse Oximetry 91 96 94 10/02/20 03:26 10/02/20 04:11 10/02/20 04:57 Temperature 37.3 C Pulse Rate 100 89 82 Respiratory Rate 24 H 24 H 22 H Blood Pressure 104/66 100/75 112/70 Pulse Oximetry 94 98 98 10/02/20 05:30 10/02/20 06:07 10/02/20 07:09 Temperature 36.6 C Pulse Rate 83 74 79 Respiratory Rate 22 H 28 H 22 H Blood Pressure 105/71 102/71 102/59 L Pulse Oximetry 98 99 97 Exam Narrative: Exam Narrative: - GENERAL: Ill-appearing male - EYES: EOMI. Anicteric. - HENT: Dry mucous membranes. - LUNGS: Gurgling, rhonchi coarse throughout - CARDIOVASCULAR: Regular rate and rhythm. No murmur. No JVD. - ABDOMEN: Soft, nondistended, bowel sounds present. - EXTREMITIES: No edema. Peripheral pulses 2+. - NEUROLOGIC: Unable to assess due to mental status - PSYCHIATRIC: Awake, unable to assess due to mental status - SKIN: No rashes or lesions. Warm. H&P: Results Labs Labs: Short CBC 11/24/20 Range/Units 00:37 WBC 10.2 H (4.5-10.0) K/mm3 Hgb 12.9 L (14.0-18.0) g/dL Hct 39.1 L (42.0-52.0) %
--- NOTE | 2020-10-02 15:05 | PM.CNPUL ---
Assessment and Plan Assessment and plan (1) Acute respiratory failure with hypoxia: Code(s): J96.01 - Acute respiratory failure with hypoxia Status: Acute Assessment and Plan: titrate oxygen to keep sats 92-96% (2) Pneumonia due to 2019-nCoV: Code(s): U07.1 - COVID-19; J12.89 - Other viral pneumonia Status: Acute Assessment and Plan: Dexamethasone may be a bit late but worth a try at 6 mg IV daily for 9 more days ( received 10 mg in ER ) Not a good candidate for Remdesivir given the late presentaion. (3) Encephalopathy: Code(s): G93.40 - Encephalopathy, unspecified Status: Acute Assessment and Plan: Likely from COVID-19. Avoid sedatives and narcotics if possible. Continue to monitor. GCS is 10, [id number] History of Present Illness History of Present Illness Consult date: 10/02/20 Chief complaint: Acute respiratory w/hypoxia/COVID 19/pneumonia Narrative: 55 y/o male with Down's Syndrome admitted with COVID-19 and mild hypoxemia and confusion. He was COVID positive on 09/22/20. He is not able to give me a history but appears comfortable but lethargic. He is on 6 liters nasal cannula. CXr showed bilateral patch infiltrates Review of Systems Review of Systems: All systems reviewed & are unremarkable except as noted in HPI and below PMFSH Past Medical History Medical History Alzheimer disease Behavior disturbance Chronic anemia Chronic kidney disease, stage 3 Deaf : Baseline creatinine between 1.5 and 1.60. Dementia Down syndrome GERD (gastroesophageal reflux disease) Seizure Surgical History Surgical History No pertinent past surgical history Social History Social History Social History: The patient lives in a skilled nursing, [facility]. He is unable to provide me with any family history. His legal guardian is Izabela Blackburn. He is listed as a full code. Smoking status: Never smoker Alcohol intake: never Substance use: never Spiritual care concerns: No Agree to blood products: No Meds Home Medications and Allergies Home Medications Medication Instructions Recorded Confirmed Type cholecalciferol (vitamin D3) 1,000 unit PO DAILY 01/29/20 10/02/20 History [Vitamin D3] docusate sodium 100 mg PO DAILY 01/29/20 10/02/20 History donepezil 10 mg PO DAILY 01/29/20 10/02/20 History finasteride 5 mg PO DAILY 01/29/20 10/02/20 History levetiracetam 500 mg PO BID 01/29/20 10/02/20 History quetiapine 100 mg PO BID 01/29/20 10/02/20 History senna 8.6 mg PO BID PRN 01/29/20 10/02/20 History tamsulosin 0.4 mg PO DAILY 01/29/20 10/02/20 History albuterol sulfate [Ventolin HFA] 2 puff INHALATION QID PRN #6.7 g 09/23/20 10/02/20 Rx Allergies Allergy/AdvReac Type Severity Reaction Status Date / Time doxycycline AdvReac Severe Seizure Verified 10/02/20 08:29 tomato AdvReac Intermediate Other Verified 10/02/20 08:28 SODA AdvReac Intermediate Other Uncoded 10/02/20 08:28 Vital Signs Vital Signs - 24 hr 10/02/20 00:18 10/02/20 01:52 10/02/20 02:45 Temperature 38.4 C H Pulse Rate 106 H 111 H 110 H Respiratory Rate 36 H 26 H 24 H Blood Pressure 120/104 H 109/79 111/74 Pulse Oximetry 91 96 94 10/02/20 03:26 10/02/20 04:11 10/02/20 04:57 Temperature 37.3 C Pulse Rate 100 89 82 Respiratory Rate 24 H 24 H 22 H Blood Pressure 104/66 100/75 112/70 Pulse Oximetry 94 98 98 10/02/20 05:30 10/02/20 06:07 10/02/20 07:09 Temperature 36.6 C Pulse Rate 83 74 79 Respiratory Rate 22 H 28 H 22 H Blood Pressure 105/71 102/71 102/59 L Pulse Oximetry 98 99 97 10/02/20 08:00 10/02/20 10:00 10/02/20 12:00 Temperature 36.0 C L Pulse Rate 84 80 78 Respiratory Rate 18 Blood Pressure 92/63 L Pulse Oximetry 95 10/02/20 12:05 10/02/20 14:00 Temperature
[2020-10-02] MEDS: REMDESIVIR 200 MG/NS 250 ML 200 MG/250 ML BAG 250 MG IVPB (17:38)
[2020-10-02] MEDS: ENOXAPARIN 40 MG/0.4 ML SYRINGE SUB-Q (21:24)
[2020-10-03] VITALS (17 sets, daily range): BP systolic 98–154; BP diastolic 51–64; PULSE 70–102; RESP 16–20; TEMP 36.8–37.2; O2SAT 91–97; BMI 11.0
--- NOTE | 2020-10-03 03:07 | PC.NURSE ---
This patient, Tani Anna Jr., was transferred to [ ] on 10/03/20 at 0308. Personal belongings sent with patient. Report given to [ ]. Appropriate documentation sent with patient. REPORT GIVEN TO MOOK ZIMMERMAN.
[2020-10-03] MEDS: ALBUTEROL SULFATE NEB 2.5 MG/0.5 ML INH 5 MG INHALATION ×4 (03:17→21:48)
--- NOTE | 2020-10-03 03:30 | PC.NURSE ---
0245: ACCEPTED [facility] IMU A&OX1. NONVERBAL/BLIND/DEAF. IN NO APPARENT DISTRESS/PAIN. PERSISTENT NON-PROD. COUGH. SPO2 95 ON RA. TELE ON. LAST BLADDER SCAN @ 0000 LESS THAN 300 PER ALAYNA PENA RN. DROPLET PRECAUTIONS MAINTAINED.
[2020-10-03 07:54] LABS: Hematocrit 33.9 % (42.0-52.0); Hemoglobin 11.3 g/dL (14.0-18.0); Mean Corpuscular HGB Conc 33.3 g/dl (32-36); Mean Corpuscular Hemoglobin 32.8 pg (26-34); Mean Corpuscular Volume 98.5 fl (80-100); Mean Platelet Volume 9.9 fl (7.4-10.4); Platelet Count Result 286 k/mm3 (150-375); Red Blood Count 3.44 M/mm3 (4.6-6.20); Red Cell Distribution Width 13.4 % (11.5-14.5); White Blood Count 12.3 K/mm3 (4.5-10.0)
[2020-10-03 08:02] LABS: Alanine Aminotransferase 21 U/L (4-50); Anion Gap 6 mmol/L (8-16); Blood Urea Nitrogen 24 mg/dL (9-20); Calcium 8.3 mg/dL (8.4-10.2); Carbon Dioxide 33 mmol/L (22-30); Chloride 106 mmol/L (98-107); Estimated CRCL calculation 45 ml/min; Estimated Glomerular Filt Rate > 60; Glucose 106 mg/dL (75-110); Potassium 3.8 mmol/L (3.4-5.0); Sodium 145 mmol/L (137-145)
[2020-10-03] MEDS: DEXAMETHASONE SOD PHOS INJ 4 MG/ML VIAL 6 MG IV PUSH (09:39)
--- NOTE | 2020-10-03 12:13 | PM.IMPN ---
Progress Note: A&P Assessment and Plan (1) Encephalopathy: Code(s): G93.40 - Encephalopathy, unspecified Status: Acute Assessment and Plan: -Likely secondary to infection COVID-19 -swallow evaluation complete, recommendations for mild thick liquids and regular consistency foods they are easy to chew -will have PT and OT evaluate and treat -will need to get up to chair twice a day (2) Acute respiratory failure with hypoxia: Code(s): J96.01 - Acute respiratory failure with hypoxia Status: Acute Assessment and Plan: Supplemental oxygen to keep oxygen saturation greater 90%, weaned off to room air on 10/03/2020 (3) Pneumonia due to COVID-19 virus: Code(s): U07.1 - COVID-19; J12.89 - Other viral pneumonia Status: Acute Assessment and Plan: -Diagnosed 09/22/2020 -pulmonary consult following case -started remdesivir and dexamethasone, limit dexamethasone 5 days while on room air (4) Down syndrome: Code(s): Q90.9 - Down syndrome, unspecified Status: Chronic Assessment and Plan: Patient has significant disability, deaf, and some blindness (5) Chronic kidney disease, stage 3: Qualifiers: Chronic kidney disease stage 3 subtype: stage 3a (GFR 45-59) Qualified Code(s): N18.31 - Chronic kidney disease, stage 3a Code(s): N18.3 - Chronic kidney disease, stage 3 (moderate) Status: Acute Assessment and Plan: stable (6) Urinary retention: Code(s): R33.9 - Retention of urine, unspecified Status: Acute Assessment and Plan: resolved, patient has urinary incontinence Additional Plan Diet: Regular consistency, mild thick liquids DVT prophylaxis: Lovenox Code status: Changing to DNR/DNI 10/03/2020, legal guardian come tomorrow to sign paper Disposition: Moving from IMU to medical floor with telemetry. Treated COVID-19 will continue to watch his oxygen requirements. Subjective Date/time seen: 10/03/20 12:13 Patient examined. He is breathing comfortably on room air. Discussed with nurses patient has decreased p.o. intake. Called and updated family, Izabela in the legal guardian. Patient was quickly weaned from 15 L down to room air, yesterday he was started on remdesivir and dexamethasone for COVID-19. Will continue COVID-19 treatment and continue to watch oxygen. Today would I added continuous pulse ox to continue following as patient not able to verbalize dyspnea. We will continue to work with patient to feed him, nurses were concerned he may not feel tolerate diet, if he does not do well with lunch we will re-evaluate with speech therapy. Legal guardian would like to update code status to DNR/DNI. Review of Systems Review of Systems: ROS unobtainable: Yes unobtainable due to medical condition and unobtainable due to mental status Exam Narrative: Exam Narrative: - GENERAL: Ill-appearing male breathing comfortably nonlabored on room air - EYES: EOMI. Anicteric. - HENT: Dry mucous membranes. - LUNGS: Rhonchi throughout - CARDIOVASCULAR: Regular rate and rhythm. No murmur. No JVD. - ABDOMEN: Soft, nondistended, bowel sounds present. - EXTREMITIES: No edema. Peripheral pulses 2+. - NEUROLOGIC: Unable to assess due to mental status - PSYCHIATRIC: Awake, unable to assess due to mental status - SKIN: No rashes or lesions. Warm. Objective Data Vital Signs Vital Signs: Vital Signs - 24 hr 10/02/20 14:00 10/02/20 14:55 10/02/20 15:05 Temperature Pulse Rate 80 64 66 Respiratory Rate 18 18 Blood Pressure Pulse Oximetry 10/02/20 16:00 10/02/20 18:00 10/02/20 20:00 Temperature 36.4 C 36.6 C Pulse Rate 75 74 76 Respiratory Rate 14 20 Blood Pressure 107/55 L 92/47 L Pulse Oximetry 95 92 10/02/20 20:57 10/02/20 21:09 10/02/20 22:00 Temperature Pulse Rate 72 67 102 H Respiratory Rate 16 16 Blood Pressure Pulse Oximetry 94 10/02/20 23:53 10/03/20 00:00 10/03/20 02:00 Tem
--- NOTE | 2020-10-03 13:05 | PM.PNPUL ---
Progress Note: A&P Assessment and Plan (1) Pneumonia due to COVID-19 virus: Code(s): U07.1 - COVID-19; J12.89 - Other viral pneumonia Status: Acute Assessment and Plan: - doing well on room air - would continue Dexamethsone 6 mg daily for 5 days - no suspicion for aspiration events to bacterial pneumonia. He is eating fine today. No need for antibiotics Subjective Date/time seen: 10/03/20 13:05 Interval history: Appears much are awake and alert. Being fed by [facility] Review of Systems Review of Systems: All systems reviewed & are unremarkable except as noted in HPI and below Exam Const: General: ill appearing acutely Nutritional Appearance: well nourished HENMT: Mouth: Yes dry mucous membranes Neck: Neck: normal visual inspection, trachea midline and supple Resp: Auscultation: rhonchi Cardio: Jugular venous distension: no JVD Rate: regular rate Rhythm: regular rhythm Heart sounds: S1 normal heart sound present and S2 normal heart sound present GI: GI Palp: Yes Soft to palpation and No Tenderness to palpation present (GI) Auscultation: normal bowel sounds Skin: General skin exam: normal color and no rashes or lesions noted Neuro: General: moves all extremities Other: alert Extrem: General: edema bilateral (trace) Objective Data Vital Signs Vital Signs: Vital Signs - 24 hr 10/02/20 14:00 10/02/20 14:55 10/02/20 15:05 Temperature Pulse Rate 80 64 66 Respiratory Rate 18 18 Blood Pressure Pulse Oximetry 10/02/20 16:00 10/02/20 18:00 10/02/20 20:00 Temperature 36.4 C 36.6 C Pulse Rate 75 74 76 Respiratory Rate 14 20 Blood Pressure 107/55 L 92/47 L Pulse Oximetry 95 92 10/02/20 20:57 10/02/20 21:09 10/02/20 22:00 Temperature Pulse Rate 72 67 102 H Respiratory Rate 16 16 Blood Pressure Pulse Oximetry 94 10/02/20 23:53 10/03/20 00:00 10/03/20 02:00 Temperature 36.7 C Pulse Rate 93 79 87 Respiratory Rate 20 Blood Pressure 114/57 L Pulse Oximetry 97 10/03/20 02:45 10/03/20 03:28 10/03/20 04:00 Temperature 37.2 C Pulse Rate 89 90 100 Respiratory Rate 16 18 Blood Pressure 154/63 H Pulse Oximetry 95 10/03/20 04:25 10/03/20 05:00 10/03/20 08:00 Temperature 36.9 C 36.9 C 36.9 C Pulse Rate 86 86 100 Respiratory Rate 20 20 18 Blood Pressure 116/64 116/64 98/62 L Pulse Oximetry 92 92 93 10/03/20 12:00 Temperature Pulse Rate 77 Respiratory Rate Blood Pressure Pulse Oximetry Intake/Output Intake/Output: Intake & Output 09/30/20 10/01/20 10/02/20 10/03/20 23:59 23:59 23:59 23:59 Intake Total 450 200 Output Total 1450 550 Balance -1000 -350 Meds/Results Medications: Active Medications Generic Name Dose Route Start Last Admin Trade Name Freq PRN Reason Stop Dose Admin Albuterol 5 mg 10/02/20 02:00 10/03/20 09:06 Albuterol Sulfate Neb 2.5 Mg/0.5 Ml Inh INHALATION 5 mg Q6HRT MEÑO Administration Dexamethasone Sodium Phosphate 6 mg 10/03/20 09:00 10/03/20 09:39 Dexamethasone Sod Phos Inj 4 Mg/Ml Vial IV PUSH 10/11/20 09:01 6 mg DAILY MEÑO Administration Enoxaparin Sodium 40 mg 10/02/20 21:00 10/02/20 21:24 Enoxaparin 40 Mg/0.4 Ml Syringe SUB-Q 40 mg Q24H MEÑO Administration Remdesivir 100 mg in 250 mls @ 250 mls/hr 10/03/20 17:00 IVPB 10/06/20 17:01 Q24H [facility] Radiology Results: ITS Impressions Chest X-Ray 10/02/20 06:50 Impression: 1: Patchy bilateral infiltrates of the mid and lower lung zones, compatible with pneumonia. Labs Labs: Laboratory Results - last 24 hr 10/03/20 10/03/20 07:41 07:41 WBC 12.3 H RBC 3.44 L Hgb 11.3 L Hct 33.9 L MCV 98.5 MCH 32.8 MCHC 33.3 RDW 13.4 Plt Count 286 MPV 9.9 Sodium 145 Potassium 3.8 Chloride 106 Carbon Dioxide 33 H Anion Gap 6 L BUN 24 H Creatinine 1.20 Estim Creat Clear Calc 45 Estimated GFR > 60 Glucose 106 Calcium 8.3 L ALT 2
[2020-10-03] MEDS: REMDESIVIR 100 MG/NS 250 ML 100 MG/250 ML BAG 250 MG IVPB (17:51)
[2020-10-03] MEDS: ENOXAPARIN 40 MG/0.4 ML SYRINGE SUB-Q (22:49)
[2020-10-04] VITALS (8 sets, daily range): BP systolic 100–135; BP diastolic 60–107; PULSE 72–92; RESP 16–20; TEMP 36.6–36.7; O2SAT 92–96
[2020-10-04] MEDS: ALBUTEROL SULFATE NEB 2.5 MG/0.5 ML INH 5 MG INHALATION ×2 (02:58→09:06)
[2020-10-04 07:31] LABS: Alanine Aminotransferase 19 U/L (4-50)
[2020-10-04] MEDS: DEXAMETHASONE SOD PHOS INJ 4 MG/ML VIAL 6 MG IV PUSH (09:17)
[2020-10-04 09:31] LABS: Estimated CRCL calculation 45 ml/min; Estimated Glomerular Filt Rate > 60
--- NOTE | 2020-10-04 13:57 | PM.DS ---
DS: Admitting Diagnosis Admitting Diagnosis Admitting Diagnosis: Acute respiratory w/hypoxia/COVID 19/pneumonia DS: Discharge Diagnosis Discharge Diagnosis (1) Encephalopathy: Code(s): G93.40 - Encephalopathy, unspecified Status: Acute Assessment and Plan: -Likely secondary to infection COVID-19 cough improving -swallow evaluation complete, recommendations for mild thick liquids and regular consistency foods they are easy to chew (2) Acute respiratory failure with hypoxia: Code(s): J96.01 - Acute respiratory failure with hypoxia Status: Acute Assessment and Plan: No longer requiring supplemental oxygen (3) Pneumonia due to COVID-19 virus: Code(s): U07.1 - COVID-19; J12.89 - Other viral pneumonia Status: Acute Assessment and Plan: -Diagnosed 09/22/2020, quarantine for 2 weeks -complete 5 more days of dexamethasone 6 mg daily (4) Down syndrome: Code(s): Q90.9 - Down syndrome, unspecified Status: Chronic Assessment and Plan: Patient has significant disability, deaf, and some blindness (5) Chronic kidney disease, stage 3: Qualifiers: Chronic kidney disease stage 3 subtype: stage 3a (GFR 45-59) Qualified Code(s): N18.31 - Chronic kidney disease, stage 3a Code(s): N18.3 - Chronic kidney disease, stage 3 (moderate) Status: Acute Assessment and Plan: stable (6) Urinary retention: Code(s): R33.9 - Retention of urine, unspecified Status: Acute Assessment and Plan: resolved, patient has urinary incontinence DS: Summary Hospital Course Reason for hospitalization: Dyspnea Hospital Course: Patient is a 55-year-old male with past medical history of developmental delay down syndrome, dementia, seizure history, BPH presents the ED with complaints of dyspnea. Was found to have COVID-19 on 09/22/2020 and initially was sent home because he was doing so well on room air. Patient was admitted 10/02/2020 and was on 15 L oxygen rapidly weaned down to 6 L and room air by 10/03/2020. He had a speech therapy evaluation for concern for aspiration in which she was recommended to have regular consistency food with mild thick liquid. He was started on Remdesivir and dexamethasone, after 2 doses he was back to baseline vitals and labs. Patient normally is very independent however with this infection he is sluggish. He did well with his meals and consume more than 90%. Patient is stable to be discharged home to complete 5 more days of dexamethasone for his COVID-[address] Uribe was consulted and involved in the care. His dyspnea is likely related to COVID-19 pneumonia and there is no evidence of aspiration. As he becomes more alert he should be able to continue his previous regular diet. He should quarantined for 3 more days for total of 2 weeks from diagnosis date on 09/22/2020. Patient's vitals stable, labs stable, patient is stable for discharge. Status at Discharge Cognitive/behavioral status at discharge: Developmental delay down since Functional status at discharge: independent ambulation Overall status at discharge: patient is progressing back to baseline Time Spent with Patient Time attestation: Total time spent providing and/or coordinating discharge services:35 Time spent: Greater than 30 minutes Exam Narrative: Exam Narrative: - GENERAL: Ill-appearing male in no acute distress - EYES: EOMI. Anicteric. - HENT: Moist oral mucosa - LUNGS: Rhonchi throughout, nonlabored respirations on room air - CARDIOVASCULAR: Regular rate and rhythm. No murmur. No JVD. - ABDOMEN: Soft, nondistended, bowel sounds present. - EXTREMITIES: No edema. Peripheral pulses 2+. - NEUROLOGIC: Unable to assess due to mental status - PSYCHIATRIC: Awake, unable to assess due to mental status - SKIN: No rashes or lesions. Warm. DS: Data Data Completed and Pending Labs on day of discharge: Labs from last 24 hours 10/04/20
--- NOTE | 2020-10-04 16:04 | PC.NURSE ---
Addendum entered by Raissa Kirkland RN 10/04/20 16:10: Opportunity for questions provided and questions answered to the best of my ability. Original Note: Pt has discharge orders. Pt has had IV removed, tele removed, and report called to receiving facility, [facility]. Receiving facility exhibited good understanding of discharge instructions. OpportuniyPt will be assisted to the front entrance by staff and assisted into the receiving facilities transportation. Pt
== END 2020-10-04 17:10 | disposition home or self-care (01) | DRG 177 ==
LOC: ANHED 04:13 → ANHIMU 23:38 → ANH3MEDSUR 10-03 15:55 → ANHIMU 10-09 12:28
PROVIDERS: Internal Medicine Critical Care Medicine; Admitting Provider Family Medicine; Emergency Provider Emergency Medicine; PCP Family Medicine; Visit Provider Student in an Organized Health Care Education/Training Program
DX: U07.1 COVID-19 (principal); J96.01 Acute respiratory failure with hypoxia; J12.89 Other viral pneumonia; F02.81 Dementia in other diseases classified elsewhere, unspecified severity, with behavioral disturbance; G93.49 Other encephalopathy; G30.9 Alzheimer's disease, unspecified; Q90.9 Down syndrome, unspecified; N18.31 Chronic kidney disease, stage 3a; R33.9 Retention of urine, unspecified; R32 Unspecified urinary incontinence; G40.909 Epilepsy, unspecified, not intractable, without status epilepticus; N40.1 Benign prostatic hyperplasia with lower urinary tract symptoms; R33.8 Other retention of urine; H91.93 Unspecified hearing loss, bilateral; K21.9 Gastro-esophageal reflux disease without esophagitis; D64.9 Anemia, unspecified
CPT/HCPCS: 36415; 36600; 51701; 71045; 80048; 80053; 81003; 82565; 82805; 83605; 84460; 85025; 85027; 85610; 85730; 86140; 87040; 92610; 94640; 97161; 97165; 99291; J0131; J1100; J1650

== ENCOUNTER 2021-01-03 15:48 | Outpatient (CLI) | payer MEDICARE, MEDICAID, SELFPAY ==
--- NOTE | ~2021-01-03 | XR_ITS ---
EXAMINATION: XR chest 2V DATE: 01/03/2021 16:45 INDICATION: Cough. TECHNIQUE: Frontal and lateral views of the chest were obtained on 3 radiographs. COMPARISON: Chest single view 10/02/2020, CT abdomen and pelvis 10/06/2018 FINDINGS: The patient is rotated to his left on the frontal view. There are airspace opacities in rig ht lower lung zone. No pleural effusion or pneumothorax. The heart size is normal. IMPRESSION: 1. Airspace opacities in right lower lung zone, consistent with atelectasis versus pneumonia. Reviewed, dictated and finalized at location A. BUYER IMPRESSION: 1. Airspace opacities in right lower lung zone, consistent with atelectasis devin claudine pneumonia.
== END 2021-01-03 15:49 | disposition home or self-care (01) ==
PROVIDERS: PCP Family Medicine; Visit Provider Family Medicine
DX: R05 Cough (principal); R41.82 Altered mental status, unspecified
CPT/HCPCS: 71046

== ENCOUNTER 2021-01-04 16:39 | Outpatient (NON) | payer MEDICARE, MEDICAID, SELFPAY ==
[2021-01-04 17:04] LABS: Add Urine Microscopic? YES; Appearance Urine Clear (Clear); Bacteria Urine Trace /hpf; Bilirubin Urine Negative (Negative); Blood Urine Negative (Negative); Color Urine Yellow (Yellow); Glucose Urine UA Negative (Negative); Ketones Urine Negative (Negative); Leukocyte Esterase Ur 3+ LEU/UL (Negative); Nitrate Urine Negative (Negative); Protein Urine Negative (Negative); Specific Grav Ur 1.013 (1.001-1.035); Urobilinogen Urine Negative mg/dL (<2.0); WBC Urine 31-50 /hpf
== END 2021-01-04 16:40 ==
PROVIDERS: PCP Family Medicine; Visit Provider Family Medicine
DX: R41.82 Altered mental status, unspecified (principal)
CPT/HCPCS: 81001; 87086; 87088

== ENCOUNTER 2021-01-20 13:19 | Emergency (ER) | payer MEDICARE, MEDICAID, SELFPAY ==
--- NOTE | 2021-01-20 13:29 | ED.SKABFB ---
HPI - Skin/Abscess/Foreign Bdy General Chief complaint: Skin/Abscess/Foreign Body Stated complaint: RASH Time Seen by Provider: 01/20/21 13:29 Source: patient and RN notes reviewed Mode of arrival: ambulatory Limitations: no limitations History of Present Illness HPI narrative: 55 yo male presents to the [facility] with care givers C/O rash. Raised red area to the occipital portion of the head, blisterlike area to the right neck/shoulder area, red warm are to the posterior right shoulder. Patient has severe MR, nonverbal, deaf, and dementia. Report is coming from caregivers from the [facility]. Related Data Home Medications Medication Instructions Recorded Confirmed cholecalciferol (vitamin D3) 1,000 unit PO DAILY 01/29/20 01/20/21 [Vitamin D3] docusate sodium 100 mg PO DAILY 01/29/20 01/20/21 donepezil 10 mg PO DAILY 01/29/20 01/20/21 finasteride 5 mg PO DAILY 01/29/20 01/20/21 levetiracetam 500 mg PO BID 01/29/20 01/20/21 quetiapine 100 mg PO BID 01/29/20 01/20/21 senna 8.6 mg PO BID PRN 01/29/20 01/20/21 tamsulosin 0.4 mg PO DAILY 01/29/20 01/20/21 Allergies Allergy/AdvReac Type Severity Reaction Status Date / Time doxycycline AdvReac Severe Seizure Verified 01/20/21 13:56 tomato AdvReac Intermediate Other Verified 01/20/21 13:56 SODA AdvReac Intermediate Other Uncoded 01/20/21 13:56 Review of Systems Review of Systems: Narrative: CONSTITUTIONAL: Denies fever, chills, or sweats. RESPIRATORY: Denies cough or dyspnea. GASTROINTESTINAL: Denies abdominal pain, nausea, vomiting, or diarrhea. GENITOURINARY: Denies dysuria or hematuria. SKIN: Denies rash or itching. MUSCULOSKELETAL: Denies back pain, joint pain, or myalgia. NEUROLOGIC: Denies headache, numbness, or weakness. PSYCHIATRIC: Denies anxiety or depression. All other systems reviewed are negative, except as documented in HPI. ROS unobtainable: Yes unobtainable due to mental status (MR, dementia. Poor report from caregivers who are not good historian) PMF Past Medical History Medical History Alzheimer disease Behavior disturbance Chronic anemia Chronic kidney disease, stage 3 Deaf : Baseline creatinine between 1.5 and 1.60. Dementia Down syndrome GERD (gastroesophageal reflux disease) Seizure Surgical History Surgical History No pertinent past surgical history Social History Social History Social History: The patient lives in a [facility], [facility]. He is unable to provide me with any family history. His legal guardian is Izabela Blackburn. He is listed as a full code. Smoking status: Never smoker Alcohol intake: never Substance use: never Spiritual care concerns: No Agree to blood products: No Comments At the time of my signature, I reviewed and agree with the nursing past medical, surgical, social, and family history. There is no relevant family history pertinent to the patient complaint. Exam Narrative: Exam Narrative: GENERAL: This is a thin, patient that is not able to communicate due to mental retardation and dementia, patient is deaf. HEAD: normocephalic, has a 4x3 cm raised area that appears bruised and not red or warm to touch EYES: PERRL. Sclera clear/white. Vision is grossly intact. EARS: External ears normal. NOSE: External nose normal with no obvious nasal discharge, nares without redness, no rhinorrhea. THROAT: Mucous membranes moist, posterior pharynx clear. NECK: Neck supple, non-tender without lymphadenopathy, masses or thyromegaly. CARDIOVASCULAR: Regular rate and rhythm without murmurs, gallops, or rubs. RESPIRATORY: Clear to auscultation. Breath sounds equal bilaterally. No wheezes, rales, or rhonchi. GASTROINTESTINAL: Abdomen soft, non-tender, nondistended. Bowel sounds are active. No hepato-splenomegaly, or palpable masses. No guarding. SKIN: warm, dry, i
[2021-01-20 13:35] VITALS: BP 108/79; PULSE 69; RESP 16; TEMP 37.3; O2SAT 100
== END 2021-01-20 14:45 | disposition home or self-care (01) ==
PROVIDERS: Emergency Provider Nurse Practitioner; PCP Family Medicine
DX: L03.312 Cellulitis of back [any part except buttock and flank] (principal); S20.321A Blister (nonthermal) of right front wall of thorax, initial encounter; X58.XXXA Exposure to other specified factors, initial encounter; G30.9 Alzheimer's disease, unspecified; F02.81 Dementia in other diseases classified elsewhere, unspecified severity, with behavioral disturbance; D64.9 Anemia, unspecified; N18.30 Chronic kidney disease, stage 3 unspecified; H91.90 Unspecified hearing loss, unspecified ear; F72 Severe intellectual disabilities; Q90.9 Down syndrome, unspecified; K21.9 Gastro-esophageal reflux disease without esophagitis; G40.909 Epilepsy, unspecified, not intractable, without status epilepticus
CPT/HCPCS: 99213; G0463

== ENCOUNTER 2021-01-26 18:54 | Emergency (ER) | payer MEDICARE, MEDICAID, SELFPAY ==
--- NOTE | ~2021-01-26 | CT_ITS ---
EXAMINATION: CT abdomen pelvis w con DATE: 01/26/2021 20:14 INDICATION: Abdominal pain, constipation TECHNIQUE: Computed tomography (CT) of the abdomen and pelvis was performed with 100 cc Omnipaque 350 intravenous contrast. Automated exposure control and iterative reconstruction technique were employe d. Exam dose: 834.24 mGy-cm total exam DLP. COMPARISON: None. FINDINGS: Minimal atelectasis of the right lower lobe. Normal heart size. No pericardial or pleural effusion. Approximately 1.3 x 2.6 cm hypoenhancing lesion of the anteromedial aspect of the right hepatic lobe. The liver is otherwise unremarkable. Normal splenic size. No pancreatic mass lesion or calcification. No bile duct or pancreatic duct dila tation. The gallbladder appears normal. Normal morphology of the adrenal glands. Mild to moderate right hydronephrosis and pelviectasis, likely secondary to right ureteropelvic dispr oportion. There is severe left hydronephrosis with severe thinning of the left renal parenchyma. There is left hydroureter. There is prominent distention of the urinary bladder. There is mild prominence of the prostate and nu merous prostate calcifications. There is prominent amount of fecal material in the rectosigmoid area as well and most of the colon. N o bowel obstruction is evident. No intraperitoneal free air is detected. Normal caliber of the abdominal aorta. No intraperitoneal or retroperitoneal or pelvic mass lesion or adenopathy or ascites. Degenerative spurring of the thoracic spine. Bilateral L5 pars interarticularis defects with associated grade 1 anterolisthesis at L5-S1 IMPRESSION: Prominent distention of the urinary bladder and severe left hydroureteronephrosis with c hronic severe thinning of the rectum and throughout the left kidney Moderate right hydronephrosis and pelviectasis, possibly due to ureteropelvic disproportion. Nonspecific 1.3 x 2.6 cm hypoattenuating lesion of the right hepatic lobe Bilateral L5 pars interarticularis defects with grade 1 anterolisthesis at L5-S1. Reviewed, dictated and finalized at [facility]. Reviewed, dictated and finalized at location [facility]. IMPRESSION: Prominent distention of the urinary bladder and severe left hydrou reteronephrosis with chronic severe thinning of the rectum and throughout the l eft kidney Moderate right hydronephrosis and pelviectasis, possibly due to ureteropelvic d isproportion. Nonspecific 1.3 x 2.6 cm hypoattenuating lesion of the right hepatic lobe Bilateral L5 pars interarticularis defects with grade 1 anterolisthesis at L5-S 1.
[2021-01-26 18:54] VITALS: BP 122/69; PULSE 94; RESP 20; TEMP 37.6; O2SAT 94
--- NOTE | 2021-01-26 19:24 | ED.GENADULT ---
HPI - General Adult General Chief complaint: Wound/Laceration Stated complaint: Cellulitis Time Seen by Provider: 01/26/21 19:12 Source: RN notes reviewed Mode of arrival: EMS History of Present Illness HPI narrative: Patient is 55 years old white male, history of dementia and Down syndrome, mute and deaf brought to the emergency room by caregiver who is telling me that patient unable to have a bowel movement for the last 6 days. She is telling me that patient did not have any fever, chills, nausea, vomiting. Recent history of shingles and cellulitis, patient on antibiotic and on tramadol Related Data Home Medications Medication Instructions Recorded Confirmed cholecalciferol (vitamin D3) 1,000 unit PO DAILY 01/29/20 01/20/21 [Vitamin D3] docusate sodium 100 mg PO DAILY 01/29/20 01/20/21 donepezil 10 mg PO DAILY 01/29/20 01/20/21 finasteride 5 mg PO DAILY 01/29/20 01/20/21 levetiracetam 500 mg PO BID 01/29/20 01/20/21 quetiapine 100 mg PO BID 01/29/20 01/20/21 senna 8.6 mg PO BID PRN 01/29/20 01/20/21 tamsulosin 0.4 mg PO DAILY 01/29/20 01/20/21 Allergies Allergy/AdvReac Type Severity Reaction Status Date / Time doxycycline AdvReac Severe Seizure Verified 01/20/21 13:56 tomato AdvReac Intermediate Other Verified 01/20/21 13:56 SODA AdvReac Intermediate Other Uncoded 01/20/21 13:56 Review of Systems Review of Systems: ROS unobtainable: Yes unobtainable due to mental status PMFSH Past Medical History Medical History Alzheimer disease Behavior disturbance Chronic anemia Chronic kidney disease, stage 3 Deaf : Baseline creatinine between 1.5 and 1.60. Dementia Down syndrome GERD (gastroesophageal reflux disease) Seizure Surgical History Surgical History No pertinent past surgical history Social History Social History Social History: The patient lives in a assisted, [facility]. He is unable to provide me with any family history. His legal guardian is Izabela Blackburn. He is listed as a full code. Smoking status: Never smoker Alcohol intake: never Substance use: never Spiritual care concerns: No Agree to blood products: No Exam Narrative: Exam Narrative: General appearance: Well-developed, well-nourished Skin: Normal color Head: Normocephalic, nontraumatic Eyes: Clear conjunctiva ENT: Oropharynx normal, ears normal, nose normal Neck: Supple, nontender Chest and respiratory: Airway patent, no respiratory distress, no accessory muscle use Heart: Regular rate/rhythm Abdomen: Distended, diffusely tender Neurologic: Patient is awake, disoriented x4 Course Course Emergency Course: Stable FOUNDER AND PRESIDENT/PA Physician Supervision HEAVEN urologist on-call, patient can go home and call office in 2 days for kidney ultrasound and Ac[place] catheter evaluation. Reevaluation(s) Date: 01/26/21 Time: 22:50 Vital Signs Vital signs: Vital Signs Temperature 37.6 C H 01/26/21 18:54 Pulse Rate 94 01/26/21 18:54 Respiratory Rate 20 01/26/21 18:54 Blood Pressure 122/69 01/26/21 18:54 Pulse Oximetry 94 01/26/21 18:54 Temperature 37.6 C H 01/26/21 18:54 Pulse Rate 94 01/26/21 18:54 Respiratory Rate 20 01/26/21 18:54 Blood Pressure 122/69 01/26/21 18:54 Pulse Oximetry 94 01/26/21 18:54 Medical Decision Making MDM Narrative Medical decision making narrative: Patient presents with no bowel movement for 6 days. High likely secondary to tramadol. Patient started on tramadol for shingles recently. History of constipation but does not last u
[2021-01-26 19:44] LABS: Basophils Percent Auto 0.1 % (0.2-1.2); Hematocrit 35.2 % (42.0-52.0); Hemoglobin 11.6 g/dL (14.0-18.0); Immature Granulocyte Absolute 0.04 K/mm3 (0.00-0.031); Immature Granulocyte Percent A 0.4 % (0-0.5); Lymphocytes Percent Auto 13.1 % (18.3-44.2); Mean Corpuscular Hemoglobin 33.4 pg (26-34); Mean Corpuscular Volume 101.4 fl (80-100); Mean Platelet Volume 9.9 fl (7.4-10.4); Monocytes Absolute Auto 0.3 K/mm3 (0.1-0.6); Monocytes Percent Auto 2.8 % (2.6-8.5); Neutrophils Absolute Auto 7.7 K/mm3 (1.3-6.7); Neutrophils Percent Auto 83.6 % (45.5-73.1); Platelet Count Result 334 k/mm3 (150-375); Red Blood Count 3.47 M/mm3 (4.6-6.20); Red Cell Distribution Width 13.9 % (11.5-14.5); White Blood Count 9.2 K/mm3 (4.5-10.0)
[2021-01-26 19:55] LABS: Alanine Aminotransferase 38 U/L (4-50); Albumin Level 3.3 g/dL (3.5-5.1); Alkaline Phosphatase 79 U/L (38-126); Anion Gap 5 mmol/L (8-16); Aspartate Amino Transferase 62 U/L (17-59); Bilirubin,Total 0.2 mg/dL (0.2-1.3); Blood Urea Nitrogen 23 mg/dL (9-20); Calcium 8.2 mg/dL (8.4-10.2); Carbon Dioxide 27 mmol/L (22-30); Chloride 106 mmol/L (98-107); Estimated Glomerular Filt Rate 53; Glucose 121 mg/dL (75-110); Lipase 36 U/L (23-300); Potassium 4.4 mmol/L (3.4-5.0); Sodium 138 mmol/L (137-145)
[2021-01-26] MEDS: MORPHINE SULFATE (*CRX) 4 MG/ML INJ IV PUSH (19:59)
[2021-01-26] MEDS: ONDANSETRON INJ 4 MG/2 ML VIAL IV PUSH (20:00)
[2021-01-26] MEDS: SODIUM CHLORIDE 0.9% IV 1,000 ML 999 ML IV CONT (20:00)
[2021-01-26 22:20] LABS: Add Urine Microscopic? YES; Appearance Urine Clear (Clear); Bilirubin Urine Negative (Negative); Blood Urine 2+ (Negative); Color Urine Yellow (Yellow); Glucose Urine UA Negative (Negative); Ketones Urine Negative (Negative); Leukocyte Esterase Ur Negative LEU/UL (Negative); Nitrate Urine Negative (Negative); Protein Urine 1+ mg/dL (Negative); RBC Urine 51-75 /hpf (0-2); Specific Grav Ur 1.021 (1.001-1.035); Squamous Epithelial Cell Urine Rare /hpf (Few); Urobilinogen Urine Negative mg/dL (<2.0); WBC Urine 0-3 /hpf
[2021-01-26] MEDS: LORazepam INJ (*CRX) 2 MG/ML VIAL 1 MG IV PUSH (22:28)
[2021-01-26 23:34] VITALS: BP 120/71; PULSE 96; RESP 16; TEMP 37.2; O2SAT 96
[2021-01-27 00:59] VITALS: BP 131/75; PULSE 100; RESP 20; O2SAT 100
[2021-01-27 01:45] VITALS: BP 126/75; PULSE 91; RESP 14; O2SAT 98
[2021-01-27 03:00] VITALS: BP 119/73; PULSE 90; RESP 12; O2SAT 98
[2021-01-27 04:01] VITALS: BP 116/79; PULSE 94; RESP 18; O2SAT 99
[2021-01-27 04:34] VITALS: BP 124/72; PULSE 89; RESP 18; O2SAT 99
== END 2021-01-27 04:40 | disposition home or self-care (01) ==
PROVIDERS: Emergency Provider Emergency Medicine; PCP Family Medicine
DX: K59.00 Constipation, unspecified (principal); R33.9 Retention of urine, unspecified; Q90.9 Down syndrome, unspecified; G30.9 Alzheimer's disease, unspecified; F02.80 Dementia in other diseases classified elsewhere, unspecified severity, without behavioral disturbance, psychotic disturbance, mood disturbance, and anxiety; H91.3 Deaf nonspeaking, not elsewhere classified; D64.9 Anemia, unspecified; N18.30 Chronic kidney disease, stage 3 unspecified; K21.9 Gastro-esophageal reflux disease without esophagitis; N13.30 Unspecified hydronephrosis; K76.9 Liver disease, unspecified
CPT/HCPCS: 36415; 74177; 80053; 81001; 83690; 85025; 96361; 96374; 96375; 99284; J2060; J2270; J2405; J7030; Q9967

== ENCOUNTER 2021-02-25 09:43 | Outpatient (CLI) | payer MEDICARE, MEDICAID, SELFPAY ==
--- NOTE | ~2021-02-25 | US_ITS ---
EXAMINATION: US retroperitoneal comp DATE: 02/25/2021 10:33 INDICATION: Hydronephrosis TECHNIQUE: Multiple grayscale, color Doppler, and pulsed Doppler images of the kidneys and renal shyla [place] were obtained. COMPARISON: CT dated 01/26/2021 and ultrasound dated 10/05/2018 FINDINGS: The right kidney measures 10.3 x 4.2 x 5.8 cm. With mild right hydronephrosis The left kidney measure s 13.4 x 9.4 x 7.6 with severe hydronephrosis which appears increased since 2018. There is normal rig ht renal parenchymal echogenicity. Prominent renal cortical atrophy in the left kidney precluding ass essment of echogenicity. No stones identified. Mild diffuse bladder wall thickening accounting for t he degree of distention. Bladder measures 13.5 x 6.0 x 14.3 cm yielding calculated volume of 604 mL.. IMPRESSION: 1. Chronic severe left and mild right hydronephrosis. 2. Diffuse mild wall thickening of the wall of the distended bladder which could be related to chroni c outlet obstruction, neurogenic bladder or cystitis either acute or chronic. Reviewed, dictated and finalized at location [facility]. IMPRESSION: 1. Chronic severe left and mild right hydronephrosis. 2. Diffuse mild wall thickening of the wall of the distended bladder which coul d be related to chronic outlet obstruction, neurogenic bladder or cystitis eith er acute or chronic.
== END 2021-02-25 09:44 | disposition home or self-care (01) ==
PROVIDERS: PCP Family Medicine; Visit Provider Nurse Practitioner Family
DX: N13.30 Unspecified hydronephrosis (principal)
CPT/HCPCS: 76770

== ENCOUNTER 2021-02-26 08:28 | Emergency (ER) | payer MEDICARE, MEDICAID, SELFPAY ==
--- NOTE | ~2021-02-26 | XR_ITS ---
EXAMINATION: XR chest 1V portable DATE: 02/26/2021 09:46 INDICATION: Syncope. TECHNIQUE: A single frontal view of the chest was obtained. COMPARISON: Chest 2 views 01/03/2021, CT abdomen and pelvis 10/06/2018 FINDINGS: There are mild airspace opacities in left lower lobe. No pleural effusion or pneumothorax. The heart size is normal. IMPRESSION: 1. Mild airspace opacities in left lower lobe, consistent with atelectasis versus pneumonia. Reviewed, dictated and finalized at location B. IMPRESSION: 1. Mild airspace opacities in left lower lobe, consistent with atelectasis vers us pneumonia.
--- NOTE | ~2021-02-26 | CT_ITS ---
EXAMINATION: CT brain wo con DATE: 02/26/2021 10:07 INDICATION: Seizure. Recent head injury. TECHNIQUE: Computed tomography (CT) of the head was performed without intravenous contrast. Sagittal and coronal reconstructions were performed. The mA was adjusted according to patient size. Iterative reconstruction technique was employed. The dose-length product was 605.33 mGy-cm. COMPARISON: head CT dated 09/23/2020 and MRI dated 10/08/2018 FINDINGS: No acute intracranial hemorrhage or acute infarction. Diffuse moderate cerebral atrophy with increase d prominence of the ventricles and sulci which is disproportionate for age. Stable appearance of asym metric more prominent enlargement of the occipital and temporal horns of the right lateral ventricle suggesting chronic mild obstructive hydrocephalus resulting from a CSF attenuation cystic lesion at t he body of the right lateral ventricle with the nearly indiscernible thin dillard of the cystic lesion better appreciated on the prior MRI. Basal cisterns are patent. No midline shift. Stable appearance o f moderate scattered white matter hypoattenuation consistent with chronic small vessel ischemic disea se. No masses identified. The orbits and paranasal sinuses are normal. Chronic small bilateral mastoi d effusions. Intracranial calcified cerebral atherosclerosis is noted. IMPRESSION: 1. No acute intracranial process. 2. Disproportionate for age moderate diffuse volume loss and moderate scattered white matter hypoatte nuation which could be seen with chronic small vessel ischemic disease. 3. Stable appearance of asymmetric enlargement of the temporal and occipital horns of the right later al ventricle likely representing chronic mild obstructive hydrocephalus resulting from a large simple cystic lesion in the body of the right lateral ventricle which could represent either a choroid plex us cyst or neuroepithelial cyst which is better appreciated on MRI dated 10/08/2018. Reviewed, dictated and finalized at location A. IMPRESSION: 1. No acute intracranial process. 2. Disproportionate for age moderate diffuse volume loss and moderate scattered white matter hypoattenuation which could be seen with chronic small vessel isc hemic disease. 3. Stable appearance of asymmetric enlargement of the temporal and occipital ho rns of the right lateral ventricle likely representing chronic mild obstructive hydrocephalus resulting from a large simple cystic lesion in the body of the r ight lateral ventricle which could represent either a choroid plexus cyst or ne uroepithelial cyst which is better appreciated on MRI dated 10/08/2018.
[2021-02-26 08:33] VITALS: BP 114/84; PULSE 90; PULSE 93; RESP 15; RESP 19; TEMP 36.3; O2SAT 98
[2021-02-26 08:39] VITALS: PULSE 87; O2SAT 98
--- NOTE | 2021-02-26 09:26 | ECG_ITS ---
Measurements Intervals [place] Rate: 92 P: NC: 0 QRS: 1 QRSD: 81 T: 31 QT: 341 QTc: 422 Interpretive Statements SINUS RHYTHM BASELINE ARTIFACT- I, II, III, AVR, AVL, AVF, V1-V6 BORDERLINE ECG Electronically Signed On 02-26-2021 9:54:37 CDT by Evans Houston D.O.
--- NOTE | 2021-02-26 09:28 | ED.SEIZURE ---
HPI - Seizure General Chief Complaint: Seizure Stated Complaint: seizure Time Seen by Provider: 02/26/21 09:10 Source: other (patient's caregiver) Mode of arrival: EMS Limitations: clinical condition and other (pt is nonverbal) History of Present Illness HPI Narrative: This is a 56 year old male that presents to the ER for seizure today. Per caregiver patient had a seizure in the shower. He did bite his tongue at this time. Reports she caught him before he fell to the floor. They do not describe the seizure as full body shaking, he just became stiff. He does have history of seizure disorder. Also mental disability. Lives in a fci. He has not taken his Keppra yet today, but has been taking his medications as prescribed. Caregiver reports patient is now back to his baseline. Seizure History: Yes Related Data Home Medications Medication Instructions Recorded Confirmed docusate sodium 100 mg PO DAILY 01/29/20 01/20/21 finasteride 5 mg PO DAILY 01/29/20 01/20/21 levetiracetam 500 mg PO QAM 01/29/20 01/20/21 senna 8.6 mg PO BID PRN 01/29/20 01/20/21 tamsulosin 0.4 mg PO DAILY 01/29/20 01/20/21 Fiber Gummies 02/26/21 Hydrocort 02/26/21 Robitussin-DM PRN 02/26/21 Vitamin D2 1 BYMOUTH WEEKLY 02/26/21 acetaminophen PRN 02/26/21 bacitracin PRN 02/26/21 diphenhydramine HCl PRN 02/26/21 levetiracetam 1,000 PO HS 02/26/21 melatonin PRN 02/26/21 Allergies Allergy/AdvReac Type Severity Reaction Status Date / Time doxycycline AdvReac Severe Seizure Verified 02/26/21 11:14 tomato AdvReac Intermediate Other Verified 02/26/21 11:14 SODA AdvReac Intermediate Other Uncoded 02/26/21 11:14 Review of Systems Review of Systems: ROS unobtainable: Yes unobtainable due to medical condition PMFSH Past Medical History Medical History Alzheimer disease Behavior disturbance Chronic anemia Chronic kidney disease, stage 3 Deaf : Baseline creatinine between 1.5 and 1.60. Dementia Down syndrome GERD (gastroesophageal reflux disease) Seizure Surgical History Surgical History No pertinent past surgical history Social History Social History Social History: The patient lives in a fci, [facility]. He is unable to provide me with any family history. His legal guardian is Izabela Blackburn. He is listed as a full code. Smoking status: Never smoker Alcohol intake: never Substance use: never Gender identity (if verbalized by the patient): Male Spiritual care concerns: No Agree to blood products: No Exam Narrative: Exam Narrative: GENERAL: Well-appearing, well-nourished, and in no acute distress. HEAD: Normocephalic, atraumatic. EYES: PERRLA and EOMI. ENT: Nares clear, no rhinorrhea or epistaxis. Mucous membranes dry. Oropharynx without tonsillar hypertrophy exudate or other lesions. Bilateral TMs pearly flower non-bulging NECK: Supple. No adenopathy or masses. No midline spinal tenderness CHEST: Clear to auscultation. No respiratory distress. No wheezes rales or rhonchi HEART: Regular rate and rhythm. No murmur heard. Normal peripheral pulses. ABDOMEN: Soft, normal active bowel sounds. EXTREMITIES: Normal range of motion. No edema or obvious deformity. SKIN: Warm, dry, no rash. NEURO: No focal deficits. Alert and oriented x1. PSYCH: Normal mood and affect Course Vital Signs Vital signs: Vital Signs Temperature 97.3 F L 02/26/21 08:33 Pulse Rate 93 02/26/21 08:33 Respiratory Rate 19 02/26/21 08:33 Blood Pressure 114/84 02/26/21 08:33 Pulse Oximetry 98 02/26/21 08:33 Temperature 97.3 F L 02/26/21 08:33 Pulse Rate 85 02/26/21 09:41 Respiratory Rate 16 02/26/21 09:41 Blood Pressure 129/71 02/26/21 11:21 Pulse Oximetry 98 02/26/21 08:39 MDM - Seizure MDM Narrative Medical decision making narrative: Patient
[2021-02-26 09:36] VITALS: BP 135/89; PULSE 89; RESP 25
[2021-02-26] MEDS: levETIRAcetam 500MG/NACL 100ML 500 MG/100 ML BAG 400 MG IVPB (09:37)
[2021-02-26 09:41] VITALS: BP 112/78; PULSE 85; RESP 16
[2021-02-26 10:04] LABS: Basophils Percent Auto 0.5 % (0.2-1.2); Hematocrit 37.8 % (42.0-52.0); Hemoglobin 12.4 g/dL (14.0-18.0); Immature Granulocyte Absolute 0.03 K/mm3 (0.00-0.031); Immature Granulocyte Percent A 0.5 % (0-0.5); Lymphocytes Absolute Auto 0.85 K/mm3 (0.9-3.2); Lymphocytes Percent Auto 13.3 % (18.3-44.2); Mean Corpuscular HGB Conc 32.8 g/dl (32-36); Mean Corpuscular Hemoglobin 33.2 pg (26-34); Mean Corpuscular Volume 101.3 fl (80-100); Mean Platelet Volume 9.6 fl (7.4-10.4); Monocytes Absolute Auto 0.6 K/mm3 (0.1-0.6); Monocytes Percent Auto 8.6 % (2.6-8.5); Neutrophils Absolute Auto 4.9 K/mm3 (1.3-6.7); Neutrophils Percent Auto 77.1 % (45.5-73.1); Platelet Count Result 277 k/mm3 (150-375); Red Blood Count 3.73 M/mm3 (4.6-6.20); Red Cell Distribution Width 15.9 % (11.5-14.5); White Blood Count 6.4 K/mm3 (4.5-10.0)
[2021-02-26 10:18] LABS: Magnesium 2.1 mg/dL (1.6-2.3)
[2021-02-26 10:20] LABS: Creatine Kinase 156 U/L (55-170)
[2021-02-26 10:27] LABS: Alanine Aminotransferase 16 U/L (4-50); Albumin Level 3.7 g/dL (3.5-5.1); Alkaline Phosphatase 105 U/L (38-126); Anion Gap 3 mmol/L (8-16); Aspartate Amino Transferase 30 U/L (17-59); Bilirubin,Total 0.7 mg/dL (0.2-1.3); Blood Urea Nitrogen 22 mg/dL (9-20); Calcium 8.1 mg/dL (8.4-10.2); Carbon Dioxide 29 mmol/L (22-30); Chloride 108 mmol/L (98-107); Estimated CRCL calculation 53 ml/min; Estimated Glomerular Filt Rate > 60; Glucose 118 mg/dL (75-110); Potassium 3.9 mmol/L (3.4-5.0); Sodium 140 mmol/L (137-145)
[2021-02-26 10:51] LABS: Add Urine Microscopic? YES; Appearance Urine Cloudy (Clear); Bacteria Urine Trace /hpf; Bilirubin Urine Negative (Negative); Blood Urine Negative (Negative); Color Urine Yellow (Yellow); Glucose Urine UA Negative (Negative); Ketones Urine Negative (Negative); Leukocyte Esterase Ur 3+ LEU/UL (Negative); Mucus Urine Rare /lpf; Nitrate Urine Positive (Negative); Protein Urine Negative (Negative); Specific Grav Ur 1.011 (1.001-1.035); Urobilinogen Urine Negative mg/dL (<2.0); WBC Urine >75 /hpf
[2021-02-26] MEDS: SODIUM CHLORIDE 0.9% IV 500 ML 999 ML IV CONT (11:05)
[2021-02-26 11:21] VITALS: BP 129/71
[2021-03-01 05:31] LABS: Levetiracetam Keppra 25.1 mcg/mL (12.0-46.0)
== END 2021-02-26 12:17 | disposition other institution (70) ==
PROVIDERS: Physician Assistant; Emergency Provider Emergency Medicine; PCP Family Medicine
DX: G40.909 Epilepsy, unspecified, not intractable, without status epilepticus (principal); N30.00 Acute cystitis without hematuria; G30.9 Alzheimer's disease, unspecified; F02.80 Dementia in other diseases classified elsewhere, unspecified severity, without behavioral disturbance, psychotic disturbance, mood disturbance, and anxiety; D64.9 Anemia, unspecified; N28.9 Disorder of kidney and ureter, unspecified; H91.90 Unspecified hearing loss, unspecified ear; K21.9 Gastro-esophageal reflux disease without esophagitis; Q90.9 Down syndrome, unspecified
CPT/HCPCS: 36415; 70450; 71045; 80053; 80177; 81001; 82550; 83735; 85025; 87077; 87086; 87088; 87147; 87181; 87186; 93005; 99284; J1953; J7040

== ENCOUNTER 2021-03-07 14:13 | Outpatient (CLI) | payer MEDICARE, MEDICAID, SELFPAY ==
--- NOTE | ~2021-03-07 | XR_ITS ---
EXAMINATION: XR chest 2V 03/07/2021 14:35 INDICATION: Pneumonia PROCEDURE: AP and lateral views of the chest COMPARISON: Comparison to multiple prior studies sequentially, with oldest reviewed study dated 09/09. FINDINGS: The lungs are clear. The cardiomediastinal silhouette is within normal limits. There are no pleural effusions. There is no pneumothorax suspected. IMPRESSION: 1: NO ACUTE CARDIOPULMONARY DISEASE. Reviewed, dictated and finalized at location B.
== END 2021-03-07 14:14 | disposition home or self-care (01) ==
PROVIDERS: PCP Family Medicine; Visit Provider Nurse Practitioner Family
DX: J18.9 Pneumonia, unspecified organism (principal)
CPT/HCPCS: 71046

== ENCOUNTER 2021-03-14 10:32 | Emergency (ER) | payer MEDICARE, MEDICAID, SELFPAY ==
--- NOTE | ~2021-03-14 | XR_ITS ---
EXAMINATION: XR chest 1V EXAM DATE: 03/14/2021 13:06 INDICATION: Weakness. Recent head injury. TECHNIQUE: Portable AP frontal chest x-ray was obtained. Comparison is made to prior examination from 03/07/2021. FINDINGS: The lungs are clear. There are no pleural effusions. The cardiomediastinal silhouette is within normal limits. There is no pneumothorax suspected. The bones and soft tissues are unremarkab le. IMPRESSION: No acute cardiopulmonary findings. Reviewed, dictated and finalized at location B.
[2021-03-14 11:30] VITALS: BP 108/62; PULSE 80; RESP 21; TEMP 36.3; O2SAT 99
--- NOTE | 2021-03-14 13:26 | ED.GENADULT ---
HPI - General Adult General Chief complaint: Urogenital-Male Stated complaint: poss urinary retention, leg wounds Time Seen by Provider: 03/14/21 11:22 Source: other Mode of arrival: EMS Limitations: altered mental status, physical limitation, clinical condition and dementia History of Present Illness HPI narrative: 56-year-old male History of down syndrome cognitive impairment, and dementia Sent from his assisted living facility because they were concerned about possible urinary retention Attendant accompanying him is not entirely clear why that was a concern, perhaps behavioral change Also he has a couple of sores on his legs that they wanted to have looked at Patient himself does not converse and is not able to respond verbally to any questions Prior urine cultures have grown organisms resistant to Bactrim but sensitive to nitrofurantoin and Keflex Related Data Home Medications Medication Instructions Recorded Confirmed docusate sodium 100 mg PO DAILY 01/29/20 01/20/21 finasteride 5 mg PO DAILY 01/29/20 01/20/21 levetiracetam 500 mg PO QAM 01/29/20 01/20/21 senna 8.6 mg PO BID PRN 01/29/20 01/20/21 tamsulosin 0.4 mg PO DAILY 01/29/20 01/20/21 Fiber Gummies 02/26/21 Hydrocort 02/26/21 Robitussin-DM PRN 02/26/21 Vitamin D2 1 BYMOUTH WEEKLY 02/26/21 acetaminophen PRN 02/26/21 bacitracin PRN 02/26/21 diphenhydramine HCl PRN 02/26/21 levetiracetam 1,000 PO HS 02/26/21 melatonin PRN 02/26/21 Allergies Allergy/AdvReac Type Severity Reaction Status Date / Time doxycycline AdvReac Severe Seizure Verified 02/26/21 11:14 tomato AdvReac Intermediate Other Verified 02/26/21 11:14 SODA AdvReac Intermediate Other Uncoded 02/26/21 11:14 Review of Systems Review of Systems: ROS unobtainable: Yes unobtainable due to mental status PMFSH Past Medical History Medical History Alzheimer disease Behavior disturbance Chronic anemia Chronic kidney disease, stage 3 Deaf : Baseline creatinine between 1.5 and 1.60. Dementia Down syndrome GERD (gastroesophageal reflux disease) Seizure Surgical History Surgical History No pertinent past surgical history Social History Social History Social History: The patient lives in a senior living, [facility]. He is unable to provide me with any family history. His legal guardian is Izabela Blackburn. He is listed as a full code. Smoking status: Never smoker Alcohol intake: never Substance use: never Gender identity (if verbalized by the patient): Male Spiritual care concerns: No Agree to blood products: No Exam Const: General: cooperative and no acute distress Nutritional Appearance: thin Other: Appears chronically ill, questionably contracted HENMT: Head: normal to inspection, normocephalic and atraumatic Ears: external ears normal General nose exam: no epistaxis Eyes: Conjunctivae: conjunctivae normal EOM: EOMs intact bilaterally Neck: Neck: normal visual inspection, supple and no JVD Resp: Effort & Inspection: normal respiratory effort and not labored Auscultation: clear to auscultation bilaterally, no rales, no rhonchi, no wheezes and other (BS =) Cardio: Rate: regular rate Rhythm: regular rhythm Heart sounds: no murmurs GI: GI Palp: Yes Soft to palpation, No Guarding due to palpation present (GI) and No Rebound tenderness present : Other: Appears to have been incontinent of urine Skin: General skin exam: no rashes or lesions noted Other: He has a small superficial sore behind his left ankle and another behind his right knee There is an intact blister on the bottom of his right foot Neuro: General: moves all extremities Extrem: Other: Trace edema Course Vital Signs Vital signs: Vital Signs Temperature 36.3 C L 03/14/21 11:30 Pulse Rate 80 03/14/21 11:30 Resp
[2021-03-14 13:32] LABS: Add Urine Microscopic? YES; Appearance Urine Clear (Clear); Bilirubin Urine Negative (Negative); Blood Urine Negative (Negative); Color Urine Yellow (Yellow); Glucose Urine UA Negative (Negative); Ketones Urine Negative (Negative); Leukocyte Esterase Ur 1+ LEU/UL (Negative); Nitrate Urine Positive (Negative); Protein Urine 1+ mg/dL (Negative); RBC Urine 0-2 /hpf (0-2); Specific Grav Ur 1.017 (1.001-1.035); Urobilinogen Urine Negative mg/dL (<2.0); WBC Urine 21-30 /hpf
[2021-03-14 13:36] LABS: Basophils Percent Auto 0.3 % (0.2-1.2); Eosinophils Percent Auto 0.3 % (0-4.4); Hematocrit 34.7 % (42.0-52.0); Hemoglobin 11.2 g/dL (14.0-18.0); Immature Granulocyte Absolute 0.03 K/mm3 (0.00-0.031); Immature Granulocyte Percent A 0.4 % (0-0.5); Lymphocytes Absolute Auto 0.93 K/mm3 (0.9-3.2); Lymphocytes Percent Auto 13.6 % (18.3-44.2); Mean Corpuscular HGB Conc 32.3 g/dl (32-36); Mean Corpuscular Hemoglobin 33.4 pg (26-34); Mean Corpuscular Volume 103.6 fl (80-100); Monocytes Absolute Auto 0.5 K/mm3 (0.1-0.6); Neutrophils Absolute Auto 5.3 K/mm3 (1.3-6.7); Neutrophils Percent Auto 78.4 % (45.5-73.1); Platelet Count Result 383 k/mm3 (150-375); Red Blood Count 3.35 M/mm3 (4.6-6.20); Red Cell Distribution Width 15.5 % (11.5-14.5); White Blood Count 6.8 K/mm3 (4.5-10.0)
[2021-03-14 13:45] LABS: Alanine Aminotransferase 32 U/L (4-50); Albumin Level 3.4 g/dL (3.5-5.1); Alkaline Phosphatase 81 U/L (38-126); Anion Gap 5 mmol/L (8-16); Aspartate Amino Transferase 55 U/L (17-59); Bilirubin,Total 0.3 mg/dL (0.2-1.3); Blood Urea Nitrogen 25 mg/dL (9-20); Calcium 8.6 mg/dL (8.4-10.2); Carbon Dioxide 31 mmol/L (22-30); Chloride 107 mmol/L (98-107); Estimated CRCL calculation 48 ml/min; Estimated Glomerular Filt Rate > 60; Glucose 111 mg/dL (75-110); Potassium 4.2 mmol/L (3.4-5.0); Sodium 143 mmol/L (137-145)
[2021-03-14 14:13] VITALS: BP 101/65; PULSE 65; RESP 18; O2SAT 100
== END 2021-03-14 14:46 ==
PROVIDERS: Emergency Provider Emergency Medicine; PCP Family Medicine
DX: N39.0 Urinary tract infection, site not specified (principal); L89.529 Pressure ulcer of left ankle, unspecified stage; S90.821A Blister (nonthermal), right foot, initial encounter; Q90.9 Down syndrome, unspecified; F03.90 Unspecified dementia, unspecified severity, without behavioral disturbance, psychotic disturbance, mood disturbance, and anxiety; N18.30 Chronic kidney disease, stage 3 unspecified; D63.1 Anemia in chronic kidney disease; H91.90 Unspecified hearing loss, unspecified ear; K21.9 Gastro-esophageal reflux disease without esophagitis; X58.XXXA Exposure to other specified factors, initial encounter
CPT/HCPCS: 36415; 51701; 71045; 80053; 81001; 85025; 87086; 87147; 87181; 87186; 99283

== ENCOUNTER 2021-04-15 09:14 | Emergency (ER) | payer MEDICARE, MEDICAID, SELFPAY ==
--- NOTE | ~2021-04-15 | CT_ITS ---
EXAMINATION: CT brain wo con DATE: 04/15/2021 10:26 INDICATION: Head injury. TECHNIQUE: Computed tomography (CT) of the head was performed without intravenous contrast. The mA wa s adjusted according to patient size. Iterative reconstruction technique was employed. The dose-lengt h product was 605.33 mGy-cm. COMPARISON: Head CT 02/26/2021 FINDINGS: There is diffuse brain volume loss. There are scattered areas of low attenuation in the cer ebral white matter. There is no intracranial hemorrhage, acute infarction, or abnormal intracranial m ass lesion. There is ex vacuo dilatation of the lateral and third ventricles. The paranasal sinuses a re clear. The mastoid air cells are normal. There is cerumen in the external auditory canals. The orb its are normal. IMPRESSION: 1. Stable moderate nonspecific cerebral white matter disease, which likely represents chronic small v essel ischemic disease. 2. Stable diffuse brain volume loss, worse than expected for the patient's age Reviewed, dictated and finalized at location A. IMPRESSION: 1. Stable moderate nonspecific cerebral white matter disease, which likely repr esents chronic small vessel ischemic disease. 2. Stable diffuse brain volume loss, worse than expected for the patient's age
--- NOTE | ~2021-04-15 | CT_ITS ---
EXAMINATION: CT cervical spine wo con EXAM DATE: 04/15/2021 10:26 INDICATION: Fall, head laceration. Head injury. TECHNIQUE: Spiral CT of the cervical spine was performed without contrast. Axial images were reviewe d. Coronal and sagittal reformatted images cervical spine were also reviewed. The dose-length produc t (DLP) for this examination was 159.84 mGy-cm. The exposure was tailored according to patient size (auto mA exposure control), and iterative reconstruction (ASIR) was used as additional dose reduction technique. There is no prior study for comparison. FINDINGS: Incomplete posterior arch of C1, congenital variant. There is no evidence of acute cervical fracture. The odontoid process is intact. Pre-dens space is normal. Prevertebral soft tissue is n ormal. There are no soft tissue abnormalities identified. There is no disc space widening or trauma tic vertebral body subluxation suspected. There is advanced cervical disc disease and overall modera te arthropathy. Mild to moderate cervical dextroscoliosis, and evidence of thoracic levoscoliosis. A detailed level by level evaluation of spondylosis can be added as addendum if requested. IMPRESSION: 1. No acute cervical fracture. 2. Cervical spondylosis and scoliosis. Reviewed, dictated and finalized at location A.
[2021-04-15 09:26] VITALS: BP 96/77; PULSE 82; RESP 29; TEMP 36.6; O2SAT 92
[2021-04-15 09:30] VITALS: PULSE 83
--- NOTE | 2021-04-15 09:30 | ECG_ITS ---
Measurements Intervals Wake Rate: 81 P: 32 MI: 142 QRS: 7 QRSD: 80 T: 43 QT: 353 QTc: 411 Interpretive Statements SINUS RHYTHM BASELINE ARTIFACT- I, II, AVR, AVL, AVF NORMAL ECG Electronically Signed On 04-15-2021 12:01:26 CDT by Evans Houston D.O.
--- NOTE | 2021-04-15 10:21 | ED.SEIZURE ---
HPI - Seizure General Chief Complaint: Seizure Stated Complaint: seizure Time Seen by Provider: 04/15/21 09:33 Source: patient Mode of arrival: wheelchair Limitations: language barrier History of Present Illness HPI Narrative: Patient is a 56 year old male who presents with healthcare administration internship. Caregiver reports that patient had seizure this am, falling out of wheelchair onto tile floor lacerating head. Patient has a long medical history with includes seizure disorder and is non verbal. Patient is medication compliant per caregiver and lives in assisted facility. Patient has approximate 1.5 cm laceration to scalp, bleeding controlled. welder plasma arc reports seizure lasted less than a minute when patient fell out of wheelchair. Caregiver unsure of medication list. MD complaint: seizure Seizure History: Yes Related Data Home Medications Medication Instructions Recorded Confirmed docusate sodium 100 mg PO DAILY 01/29/20 01/20/21 finasteride 5 mg PO DAILY 01/29/20 01/20/21 levetiracetam 500 mg PO QAM 01/29/20 01/20/21 senna 8.6 mg PO BID PRN 01/29/20 01/20/21 tamsulosin 0.4 mg PO DAILY 01/29/20 01/20/21 Fiber Gummies 02/26/21 Hydrocort 02/26/21 Robitussin-DM PRN 02/26/21 Vitamin D2 1 BYMOUTH WEEKLY 02/26/21 acetaminophen PRN 02/26/21 bacitracin PRN 02/26/21 diphenhydramine HCl PRN 02/26/21 levetiracetam 1,000 PO HS 02/26/21 melatonin PRN 02/26/21 Allergies Allergy/AdvReac Type Severity Reaction Status Date / Time doxycycline AdvReac Severe Seizure Verified 04/15/21 09:31 tomato AdvReac Intermediate Other Verified 04/15/21 09:31 SODA AdvReac Intermediate Other Uncoded 04/15/21 09:31 Review of Systems Review of Systems: Narrative: CONSTITUTIONAL: Denies fever, chills, or sweats. EYES: Denies visual changes, redness, or discharge. ENT: Denies rhinorrhea, congestion, sore throat, or otalgia. CARDIOVASCULAR: Denies chest pain, palpitations, or edema. RESPIRATORY: Denies cough or dyspnea. GASTROINTESTINAL: Denies abdominal pain, nausea, vomiting, or diarrhea. GENITOURINARY: Denies dysuria or hematuria. SKIN: Reports laceration the skin MUSCULOSKELETAL: Denies back pain, joint pain, or myalgia. NEUROLOGIC: Reports seizure PSYCHIATRIC: Denies anxiety or depression. [facility] Past Medical History Medical History Alzheimer disease Behavior disturbance Chronic anemia Chronic kidney disease, stage 3 Deaf : Baseline creatinine between 1.5 and 1.60. Dementia Down syndrome GERD (gastroesophageal reflux disease) Seizure Surgical History Surgical History No pertinent past surgical history Social History Social History Social History: The patient lives in a jail, [facility]. He is unable to provide me with any family history. His legal guardian is Iazbela Blackburn. He is listed as a full code. Smoking status: Never smoker Alcohol intake: never Substance use: never Gender identity (if verbalized by the patient): Male Spiritual care concerns: No Agree to blood products: No Comments At the time of signature, I have reviewed and agree with nursing past medical, surgical, social, and family history unless otherwise noted. Please see nursing chart for further information. There is no relevant family history pertinent to the presenting complaint. Exam Narrative: Exam Narrative: GENERAL: Well-appearing, well-nourished, and in no acute distress. HEAD: Normocephalic, atraumatic. EYES: EOMI. No redness or drainage. Conjunctiva are normal. ENT: Mucous membranes pink and moist. CHEST: No respiratory distress. Clear to auscultation. HEART: Regular rate and rhythm. No murmur appreciated. Normal peripheral pulses. GI: Soft, nontender without rebound, or guarding. No distention. Bowel sounds normal in all quadrants. MUSCULOSKELETAL: No bony
[2021-04-15 10:24] LABS: Add Urine Microscopic? YES; Amorphous Sediment Urine Few; Appearance Urine Cloudy (Clear); Bacteria Urine Trace /hpf; Bilirubin Urine Negative (Negative); Color Urine Yellow (Yellow); Glucose Urine UA Negative (Negative); Ketones Urine Negative (Negative); Leukocyte Esterase Ur 2+ LEU/UL (Negative); Mucus Urine Rare /lpf; Nitrate Urine Negative (Negative); Protein Urine Negative (Negative); Specific Grav Ur 1.015 (1.001-1.035); Urobilinogen Urine Negative mg/dL (<2.0); WBC Urine 31-50 /hpf
[2021-04-15 10:26] LABS: Blood Urine Negative (Negative)
[2021-04-15 11:28] LABS: Basophils Absolute Auto 0.1 K/mm3 (0.0-0.1); Basophils Percent Auto 0.5 % (0.2-1.2); Eosinophils Percent Auto 0.1 % (0-4.4); Hematocrit 39.1 % (42.0-52.0); Hemoglobin 12.7 g/dL (14.0-18.0); Immature Granulocyte Absolute 0.04 K/mm3 (0.00-0.031); Immature Granulocyte Percent A 0.4 % (0-0.5); Lymphocytes Absolute Auto 1.16 K/mm3 (0.9-3.2); Lymphocytes Percent Auto 10.8 % (18.3-44.2); Mean Corpuscular HGB Conc 32.5 g/dl (32-36); Mean Corpuscular Hemoglobin 32.6 pg (26-34); Mean Corpuscular Volume 100.3 fl (80-100); Mean Platelet Volume 9.3 fl (7.4-10.4); Monocytes Absolute Auto 0.6 K/mm3 (0.1-0.6); Monocytes Percent Auto 5.4 % (2.6-8.5); Neutrophils Absolute Auto 8.9 K/mm3 (1.3-6.7); Neutrophils Percent Auto 82.8 % (45.5-73.1); Platelet Count Result 493 k/mm3 (150-375); Red Cell Distribution Width 15.2 % (11.5-14.5); White Blood Count 10.7 K/mm3 (4.5-10.0)
[2021-04-15 11:38] LABS: Alanine Aminotransferase 23 U/L (4-50); Albumin Level 3.4 g/dL (3.5-5.1); Alkaline Phosphatase 124 U/L (38-126); Anion Gap 10 mmol/L (8-16); Aspartate Amino Transferase 39 U/L (17-59); Bilirubin,Total 0.3 mg/dL (0.2-1.3); Blood Urea Nitrogen 26 mg/dL (9-20); Calcium 8.8 mg/dL (8.4-10.2); Carbon Dioxide 23 mmol/L (22-30); Chloride 110 mmol/L (98-107); Estimated CRCL calculation 44 ml/min; Estimated Glomerular Filt Rate > 60; Glucose 113 mg/dL (75-110); Sodium 143 mmol/L (137-145)
[2021-04-15 12:01] VITALS: BP 104/55; PULSE 87; RESP 17; O2SAT 100
== END 2021-04-15 12:52 ==
PROVIDERS: Emergency Provider Nurse Practitioner; PCP Family Medicine
DX: G40.909 Epilepsy, unspecified, not intractable, without status epilepticus (principal); S01.01XA Laceration without foreign body of scalp, initial encounter; G30.9 Alzheimer's disease, unspecified; F02.80 Dementia in other diseases classified elsewhere, unspecified severity, without behavioral disturbance, psychotic disturbance, mood disturbance, and anxiety; Q90.9 Down syndrome, unspecified; N18.30 Chronic kidney disease, stage 3 unspecified; D64.9 Anemia, unspecified; H91.90 Unspecified hearing loss, unspecified ear; R82.998 Other abnormal findings in urine; W05.0XXA Fall from non-moving wheelchair, initial encounter
CPT/HCPCS: 12001; 36415; 70450; 72125; 80053; 81001; 85025; 87086; 93005; 99284